=== PATIENT | female | born 1935 | race Caucasian/White ===

== ENCOUNTER 2022-10-11 11:35 | Observation (INO) ==
[2022-10-11 11:58] VITALS: BMI 26.5
--- NOTE | 2022-10-11 12:17 | ED.ABDFE ---
HPI Time Seen Time Seen by Provider: 10/11/22 12:16 PCP Primary Care Physician: Matthias Tucker [place] Complaint Chief Complaint:: Pt sleeping alot more than usual, weakness, diarrhea, stomach pain indicated by pt at lower abdomen bilaterally, fever at home, increasing agitation at home, hallucinations on and Tuesday but have now resolved Self Treatment fo Chief Complaint: tylenol, immodium, advil PRN at home, none this morning did take other prescribed meds this morning COVID-19 Coronavirus risk:travel/contact w/high risk person: No Has patient experienced Coronavirus symptoms: No Reviewed Nurses Notes Review: Yes Source History Provided: Patient and Family Member Mode of arrival Mode of Arrival: Wheelchair Timing Onset of Chief Complaint: 10/07/22 PMH PMH Past Medical History: Yes Past Medical History: Dementia, GERD and Hypertension Past Medical History Comment: RLS Past Surgical History: Yes Surgical History: and Hysterectomy Family History History of Family Medical Conditions: Yes Family Medical History: Hypertension Social History Does patient currently use any type of tobacco product: No Have you used tobacco products in the last 12 months: No Type of Tobacco Use: None Does any household member use tobacco: No Alcohol Use: None Do you use any recreational Drugs:: No Lives With: Family Lives Where: Home Travel Risk Coronavirus risk:travel/contact w/high risk person: No Has patient experienced Coronavirus symptoms: No Infectious screening In the last 2 months have you had wt loss of >10#?: NO Have you had fever, night sweats or hemotysis?: No Have you traveled outside the country in the last 6 months?: No Isolation: Standard PE Vital Signs Vitals: Vital Signs Temperature 98.2 F Pulse Rate 90 Pulse Rate 90 Pulse Rate 91 Pulse Rate 91 Pulse Rate 87 Pulse Rate 85 Pulse Rate 84 Pulse Rate 83 Pulse Rate 82 Pulse Rate 82 Pulse Rate 81 Pulse Rate 79 Pulse Rate 77 Pulse Rate 83 Respiratory Rate 16 Blood Pressure 111/51 Blood Pressure 117/51 Blood Pressure 149/62 Blood Pressure 119/58 Blood Pressure 110/57 O2 Sat by Pulse Oximetry 91 O2 Sat by Pulse Oximetry 93 O2 Sat by Pulse Oximetry 93 O2 Sat by Pulse Oximetry 93 O2 Sat by Pulse Oximetry 97 O2 Sat by Pulse Oximetry 96 O2 Sat by Pulse Oximetry 96 O2 Sat by Pulse Oximetry 96 O2 Sat by Pulse Oximetry 95 O2 Sat by Pulse Oximetry 96 O2 Sat by Pulse Oximetry 96 O2 Sat by Pulse Oximetry 94 O2 Sat by Pulse Oximetry 94 O2 Sat by Pulse Oximetry 95 ROR Labs Reviewed 10/11/22 13:31 10/11/22 13:31 Laboratory: 10/11/22 15:02 Stool - Final WBC 8.4 X10^3/uL (3.6-10.0) 10/11/22 13:31 RBC 4.33 X10^6/uL (3.5-5.4) 10/11/22 13:31 Hgb 14.0 g/dL (12.0-16.0) 10/11/22 13:31 Hct 40.7 % (36.0-47.0) 10/11/22 13:31 MCV 93.9 fL (80.0-100.0) 10/11/22 13:31 MCH 32.4 pg (27.0-34.0) 10/11/22 13:31 MCHC 34.5 g/dL (33.0-35.0) 10/11/22 13:31 RDW 13.7 % (11.6-16.5) 10/11/22 13:31 Plt Count 161 X10^3/uL (150.0-450.0) 10/11/22 13:31 MPV 8.3 fL (7.4-11.0) 10/11/22 13:31 Neut % (Auto) 65.5 % (42.0-75.0) 10/11/22 13:31 Lymph % (Auto) 18.9 % (21.0-51.0) L 10/11/22 13:31 [place] % (Auto) 11.7 % (0.0-13.0) 10/11/22 13:31 Eos % (Auto) 3.6 % (0.9-2.9) H 10/11/22 13:31 Baso % (Auto) 0.3 % (0.2-1.0) 10/11/22 13:31 Neut # (Auto) 5.5 x10^3/uL (2.2-4.8) H 10/11/22 13:31 Lymph # (Auto) 1.6 X10^3/uL (1.3-2.9) 10/11/22 13:31 [place] # (Auto) 1.0 x10^3/uL (0.3-0.8) H 10/11/22 13:31 Eos # (Auto) 0.3 x10^3/uL (0.0-0.2) H 10/11/22 13:31 Baso # (Auto) 0.0 X10^3/uL (0.0-0.1) 10/11/22 13:31 Absolute Nucleated RBC 0.0 /100WBC 10/11/22 13:31 Sodium 139 mmol/L (136-145) 10/11/22 13:31 Corrected Sodium 139 mmol/L (136-145) 10/11/22 13:31 Potassium 3.3 mmol/L (3.5-5.1) L 10/11/22 13:31 Chloride 100 mmol/L (98-107) 10/11/22 13:31 Carbon Dioxide 33.1 mmol/L (21-32) H 10/11/22 13:31 BUN 17 mg/dL (7-18) 10/11/22 13:31 Creatinine 1.62 mg/dL (0.55-1.02) H 10/11/22 13:31 Est GFR (MDRD) Af Amer 39 (>60) L 10/11/22 13:31 Est GFR (MDRD) Non-Af 32 (>60) L 10/11/22 13:31 Glucose 114 mg/dL (65-99) H 10/11/22 13:31 Calcium 8.2 mg/dL (8.5-10.1) L 10/11/22 13:31 Corrected Calcium 9.0 mg/dL (8.5-10.1) 10/11/22 13:31 Total Bilirubin 0.70 mg/dL (0.2-1.0) 10/11/22 13:31 AST 20 Units/L (15-37) 10/11/22 13:31 ALT 20 Units/L (12-78) 10/11/22 13:31 Alkaline Phosphatase 55 Units/L (46-116) 10/11/22 13:31 Creatine Kinase 39 Units/L (26-192) 10/11/22 13:31 Troponin I High Sens 6.0 ng/L (4.0-60.0) 10/11/22 13:31 Total Protein 6.4 g/dL (6.4-8.2) 10/11/22 13:31 Albumin 3.0 g/dL (3.4-5.0) L 10/11/22 13:31 Globulin 3.4 g/dL (2.5-4.5) 10/11/22 13:31 Albumin/Globulin Ratio 0.9 Ratio (1.1-2.1) L 10/11/22 13:31 Amylase 16 Units/L (25-115) L 10/11/22 13:31 Lipase 38 Units/L (73-393) L 10/11/22 13:31 Specimen Type Clean catch urine 10/11/22 14:50 Urine Color Dark yellow (YELLOW) 10/11/22 14:50 Urine Appearance Hazy (CLEAR) 10/11/22 14:50 Urine pH 6.0 (5.0 - 8.0) 10/11/22 14:50 Ur Specific [place] 1.025 (1.000-1.030) 10/11/22 14:50 Urine Protein 1+ (NEGATIVE) 10/11/22 14:50 Urine Glucose (UA) Negative (NEGATIVE) 10/11/22 14:50 Urine Ketones Negative (NEGATIVE) 10/11/22 14:50 Urine Blood 1+ (NEGATIVE) 10/11/22 14:50 Urine Nitrite Negative (NEGATIVE) 10/11/22 14:50 Urine Bilirubin Negative (NEGATIVE) 10/11/22 14:50 Urine Urobilinogen Normal (NORMAL) 10/11/22 14:50 Ur Leukocyte Esterase Negative (NEGATIVE) 10/11/22 14:50 Urine RBC 0-2 /HPF (0-3) 10/11/22 14:50 Urine WBC 3-5 /HPF (0-5) 10/11/22 14:50 Ur Squamous Epith Cells Moderate /HPF (NEGATIVE) 10/11/22 14:50 Urine Bacteria Trace /HPF (NEGATIVE) 10/11/22 14:50 Urine Mucus Few /HPF (NEGATIVE) 10/11/22 14:50 Ur Culture Indicated? No/not indicated 10/11/22 14:50 Stl C. diff Tox B Gene Positive (NEGATIVE) A 10/11/22 15:02 Stl C. diff [id number] Presumptive positive (NEGATIVE) 10/11/22 15:02 C. difficile Toxin A&B Positive (NEGATIVE) A 10/11/22 15:02 Cryptosporid parvum Ag Negative (NEGATIVE) 10/11/22 15:02 Giardia lamblia Ag Negative (NEGATIVE) 10/11/22 15:02 Opioid Opioid Risk Tool Age (Andrew box if 16-45): No History of Preadolescent Sexual Abuse: No Total: 0 Total Score Risk Category: Low Risk Copyright: Singer predicting aberrant behaviors Discharge Plan Discharge Plan Patient Disposition: HOME, SELF-CARE Condition: Stable Prescriptions: No Action clonidine HCl 0.1 mg tablet 0.1 mg PO donepezil 5 mg tablet 5 mg PO QPM diltiazem HCl 240 mg capsule,extended release 24hr 240 mg PO QAM citalopram 20 mg tablet 20 mg PO QPM pantoprazole 40 mg tablet,delayed release (DR/EC) 40 mg PO QAM ferrous sulfate [FeroSul] 325 mg (65 mg iron) tablet 325 mg PO QAM hydrochlorothiazide 12.5 mg capsule 12.5 mg PO QAM gabapentin 100 mg capsule 100 mg PO QPM estradiol 0.5 mg tablet 0.5 mg PO QAM rosuvastatin 10 mg tablet 10 mg PO QPM memantine 10 mg tablet 10 mg PO aripiprazole 2 mg tablet 6 mg PO QPM Health Concerns: Post Hospitalization: new medications and changes needed to prevent readmission or further decline. Pt educated and given instructions on all concerns. Plan of Treatment: Continue with present treatment and follow up plan. Pt is to keep follow up appointment as instructed and take medications as ordered. Orders to Discharge Patient Discharge Orders: Transfer (Routine); Ordered 10/11/22 Ordered By: TARUN RAMOS Follow ups/Referrals Follow ups/Referrals: Pierre Brice [Primary Care Provider] - 3 days Instructions Stand Alone Forms: Post Hospital Follow Up Care
[2022-10-11 14:17] LABS: BASOPHILS % (AUTO) 0.3 % (0.2-1.0); EOSINOPHILS # (AUTO) 0.3 x10^3/uL (0.0-0.2); EOSINOPHILS % (AUTO) 3.6 % (0.9-2.9); HEMATOCRIT 40.7 % (36.0-47.0); LYMPHOCYTES # (AUTO) 1.6 X10^3/uL (1.3-2.9); LYMPHOCYTES % (AUTO) 18.9 % (21.0-51.0); MEAN CORPUSCULAR HEMOGLOBIN 32.4 pg (27.0-34.0); MEAN CORPUSCULAR HGB CONC 34.5 g/dL (33.0-35.0); MEAN CORPUSCULAR VOLUME 93.9 fL (80.0-100.0); MEAN PLATELET VOLUME 8.3 fL (7.4-11.0); MONOCYTES % (AUTO) 11.7 % (0.0-13.0); NEUTROPHILS # (AUTO) 5.5 x10^3/uL (2.2-4.8); NEUTROPHILS % (AUTO) 65.5 % (42.0-75.0); PLATELET COUNT 161 X10^3/uL (150.0-450.0); RED BLOOD COUNT 4.33 X10^6/uL (3.5-5.4); RED CELL DISTRIBUTION WIDTH 13.7 % (11.6-16.5); WHITE BLOOD COUNT 8.4 X10^3/uL (3.6-10.0)
[2022-10-11 14:34] LABS: CALCIUM 8.2 mg/dL (8.5-10.1); CARBON DIOXIDE 33.1 mmol/L (21-32); CREATININE 1.62 mg/dL (0.55-1.02); POTASSIUM 3.3 mmol/L (3.5-5.1); TOTAL PROTEIN 6.4 g/dL (6.4-8.2)
--- NOTE | 2022-10-11 14:42 | EKG ---
Test Reason : HYPERTENSION Blood Pressure : */* mmHG Vent. Rate : 84 BPM Atrial Rate : 84 BPM P-R Int : 150 ms QRS Dur : 76 ms QT Int : 342 ms P-R-T Axes : 66 31 -1 degrees QTc Int : 404 ms Normal sinus rhythm Nonspecific T wave abnormality Abnormal ECG No previous ECGs available Confirmed by Henrik Lawrence ([id number]) on 10/12/2022 8:04:33 AM Referred By: Confirmed By: Henrik Lawrence
[2022-10-11 15:18] LABS: BILIRUBIN,URINE NEGATIVE (NEGATIVE); BLOOD/HEMOGLOBIN,URINE 1+ (NEGATIVE); GLUCOSE, URINE NEGATIVE (NEGATIVE); KETONES,URINE NEGATIVE (NEGATIVE); LEUKOCYTE ESTERASE ,URINE NEGATIVE (NEGATIVE); NITRITES,URINE NEGATIVE (NEGATIVE); PROTEIN,URINE 1+ (NEGATIVE); UROBILINOGEN,URINE NORMAL (NORMAL)
[2022-10-11 15:30] LABS: APPEARANCE,URINE HAZY (CLEAR); BACTERIA,URINE TRACE /HPF (NEGATIVE); COLOR,URINE DARK YELLOW (YELLOW); RBC,URINE 0-2 /HPF (0-3); SQUAMOUS EPITHELIAL CELL,UR MODERATE /HPF (NEGATIVE)
[2022-10-11 16:12] LABS: CRYPTOSPORIDIUM PARVUM ANTIGEN NEGATIVE (NEGATIVE); GIARDIA LAMBLIA ANTIGEN NEGATIVE (NEGATIVE)
[2022-10-11] MEDS ORDERED: NS 1,000 ML IV 1,000 ML ONE (18:19)
[2022-10-11] MEDS: NS 1,000 ML IV 1,000 ML IV SCH ×2 (18:21→18:23)
--- NOTE | 2022-10-11 18:38 | RAD ---
EXAM: ABDOMEN X-RAY SERIES WITH CXRHISTORY: Abdominal pain.TECHNIQUE: Supine and erect views of the abdomen; frontal single view CXRCOMPARISON: None.FINDINGS:ABDOMEN: The bowel gas pattern is nonspecific and nonobstructive. There is no gross organomegaly, free intraperitoneal air, or suspicious calcifications seen. Multilevel DDD is seen in the middle and distal thoracic spine. The visualized bony structures are otherwise within normal limits.CHEST: The heart size and mediastinum are within normal limits. The lung calvo and costophrenic angles are clear. There is no acute parenchymal infiltrate, pleural effusion, or pneumothorax seen. Multilevel DDD is seen throughout the lumbar spine, marked by disc space narrowings and prominent lateral marginal osteophytosis, with mild lumbar levoscoliosis; rule out muscle spasm.. The visualized bony structures are otherwise within normal limits.IMPRESSION:1. Nonspecific, nonobstructive bowel gas pattern.2. No gross organomegaly, free intraperitoneal air, or suspicious calcifications seen.3. No evidence for acute cardiopulmonary disease seen.4. Severe multilevel DDD is seen throughout the middle and distal thoracic spine and lumbar spine.5. Mild lumbar levoscoliosis; rule out muscle spasm.Electronically signed by: Felicia Manriquez (Oct 11, 2022 18:36:49)
[2022-10-11] MEDS ORDERED: ROCEPHIN VIAL 1 GRAM ONE (20:43)
[2022-10-11] MEDS ORDERED: NS 100 ML IV 100 ML ONE (20:43)
[2022-10-11] MEDS ORDERED: ZITHROMAX INJ 500 MG VIAL 500 MG in NS 250 ML IV 250 ML IV SCH (21:00)
[2022-10-11] MEDS ORDERED: ZITHROMAX INJ 500 MG VIAL IV ONE (22:08)
[2022-10-11] MEDS ORDERED: NS 250 ML IV 250 ML IV ONE (22:08)
[2022-10-11] MEDS ORDERED: TYLENOL 325 MG TAB PO ONE (22:45)
[2022-10-11] MEDS: TYLENOL 325 MG TAB PO PRN ×2 (22:50→22:51)
[2022-10-11] MEDS ORDERED: NS 1,000 ML IV 1,000 ML IV SCH (23:32)
[2022-10-12 05:33] LABS: BASOPHILS % (AUTO) 0.3 % (0.2-1.0); EOSINOPHILS # (AUTO) 0.2 x10^3/uL (0.0-0.2); EOSINOPHILS % (AUTO) 2.4 % (0.9-2.9); HEMATOCRIT 39.1 % (36.0-47.0); HEMOGLOBIN 13.5 g/dL (12.0-16.0); LYMPHOCYTES # (AUTO) 1.5 X10^3/uL (1.3-2.9); LYMPHOCYTES % (AUTO) 15.8 % (21.0-51.0); MEAN CORPUSCULAR HEMOGLOBIN 32.3 pg (27.0-34.0); MEAN CORPUSCULAR HGB CONC 34.7 g/dL (33.0-35.0); MEAN CORPUSCULAR VOLUME 93.3 fL (80.0-100.0); MEAN PLATELET VOLUME 8.4 fL (7.4-11.0); MONOCYTES # (AUTO) 1.1 x10^3/uL (0.3-0.8); MONOCYTES % (AUTO) 12.3 % (0.0-13.0); NEUTROPHILS # (AUTO) 6.5 x10^3/uL (2.2-4.8); NEUTROPHILS % (AUTO) 69.2 % (42.0-75.0); PLATELET COUNT 167 X10^3/uL (150.0-450.0); RED BLOOD COUNT 4.19 X10^6/uL (3.5-5.4); RED CELL DISTRIBUTION WIDTH 13.5 % (11.6-16.5); WHITE BLOOD COUNT 9.4 X10^3/uL (3.6-10.0)
[2022-10-12 05:48] LABS: ALANINE AMINOTRANSFERASE 18 Units/L (12-78); ALBUMIN 2.8 g/dL (3.4-5.0); ALKALINE PHOSPHATASE 58 Units/L (46-116); ASPARTATE AMINO TRANSFERASE 24 Units/L (15-37); BLOOD UREA NITROGEN 14 mg/dL (7-18); CALCIUM 8.1 mg/dL (8.5-10.1); CARBON DIOXIDE 27.7 mmol/L (21-32); CHLORIDE 100 mmol/L (98-107); COR CA(FOR HYPOALB) 9.1 mg/dL (8.5-10.1); CREATININE 1.07 mg/dL (0.55-1.02); GLUCOSE 105 mg/dL (65-99); MAGNESIUM 1.8 mg/dL (2.0-2.9); POTASSIUM 3.1 mmol/L (3.5-5.1); SODIUM 138 mmol/L (136-145); TOTAL PROTEIN 6.2 g/dL (6.4-8.2); eGFR NON BLACK RACES 52 (>60)
[2022-10-12] MEDS ORDERED: CONSULT PHARMACY - POTASSIUM & MAGNESIUM XX SCH (07:00)
[2022-10-12] MEDS ORDERED: FERROUS GLUCONATE PO SCH (10:25)
[2022-10-12] MEDS: NS 1,000 ML IV 1,000 ML IV SCH (10:58)
[2022-10-12] MEDS: K-DUR TAB 20 MEQ PO SCH ×2 (10:59→11:26)
[2022-10-12] MEDS: CIPRO IV 400 MG PREMIX* 400 MG/200 ML IV.SOLN. IV SCH ×2 (10:59→22:20)
[2022-10-12] MEDS: MAG-OX TAB PO SCH ×2 (10:59→11:25)
[2022-10-12] MEDS: FLAGYL IV PREMIX 500 MG BAG 500 MG/100 ML BAG IV SCH ×3 (10:59→21:12)
[2022-10-12] MEDS: LOVENOX INJ 40 MG SYR SC SCH (10:59)
[2022-10-12] MEDS: CARDIZEM CD 240 MG 24-HR PO SCH (11:17)
[2022-10-12] MEDS: NAMENDA TAB 10 MG PO SCH ×2 (11:18→21:12)
[2022-10-12] MEDS: PROTONIX TAB 40 MG PO SCH (11:18)
[2022-10-12] MEDS: CATAPRES TAB 0.1 MG PO SCH ×2 (11:18→21:11)
[2022-10-12] MEDS: ESTRACE PO SCH (11:19)
--- NOTE | 2022-10-12 11:34 | DR.H&P ---
H&P - History & Physical for Day of: H&P Date: 10/11/22 - Chief Complaint Chief Complaint: AMS, WEAKNESS, DIARRHEA, FEVER, ABDOMINAL PAIN - History of Present Illness History of Present Illness: IS A 87 YEAR OLD PATIENT OF [place] IN [place], [place]. SHE HAS A PMH OF HTN, HYPERLIPIDEMIA, DEMENTIA, GERD, RLS, C- SECTION, AND HYSTERECTOMY. SHE PRESENTED TO THE ER WITH COMPLAINTS OF INCREASING WEAKNESS, DIARRHEA, LOWER ABDOMINAL PAIN, FEVER, AND ALTERED MENTAL STATUS. HER DAUGHTER REPORTS THAT SHE HAD BEEN AGITATED AND HALLUCINATING AT HOME. HER SYMPTOMS STARTED 4-5 DAYS AGO. PATIENT HAS TAKNE TYLENOL, ADVIL, AND IMMODIUM AT HOME WITHOUT IMPROVEMENT IN SYMPTOMS. ON ARRIVAL TO THE ER, HER VITALS WERE: 98.2-83-16-95%-110/57. LABS WERE OBTAINED. WBC 8.4, RBC 4.33, HGB 14.0, HCT 40.7, PLT COUNT 161, SODIUM 139, POTASSIUM 3.3, CHLORIDE 100, CARBON DIOXIDE 33.1, BUN 17, CREATININE 1.62, GLUCOSE 114, CALCIUM 8.2, TOTAL BILI 0.70, AST 20, ALT 20, ALK PHOS 55, CREATINE KINASE 39, TROPONIN 6.0, TOTAL PROTEIN 6.4, ALBUMIN 3.0, AMYLASE 16, LIPASE 38. A URINALYSIS WAS OBTAINED AND REVEALED: WBC 3-5, RBC 0-2, BACTERIA TRACE, LEUKOCYTES NEGATIVE, BLOOD 1+. STOOLS WERE POSITIVE FOR C.DIFF AND CAMPYLOBACTER. STOOL CULTURES WERE SET UP. AN ABDOMEN XRAY WAS OBTAINED AND REVEALED: 1. Nonspecific, nonobstructive bowel gas pattern. 2. No gross organomegaly, free intraperitoneal air, or suspicious calcifications. seen. 3. No evidence for acute cardiopulmonary disease seen. 4. Severe multilevel DDD is seen throughout the middle and distal thoracic spine and lumbar spine. 5. Mild lumbar levoscoliosis; rule out muscle spasm. EKG REVEALED NORMAL SINUS RHYTHM WITH HR 84 BPM. IN THE ER, SHE WAS GIVEN ZITHROMAX 500MG IV X 1 AND ROCEPHIN 1G IV X 1 DOSE. SHE WAS ADMITTED TO THE HOSPITAL FOR FURTHER EVALUATION AND TREATMENT OF DEHYDRATION, BACTERIURIA, C- DIFF COLITIS, CAMPYLOBACTER COLITIS, GENERALIZED WEAKNESS. SHE WAS STARTED ON NORMAL SALINE AT 80 ML/HR, FLAGYL 500MG IV Q6H, CIPRO 400MG IV Q12H, VSL 2 CAPS DAILY, PEPCID 20MG BID, LOVENOX 40MG SC DAILY, TYLENOL 650MG PO Q4H PRN. HER HOME MEDICATIONS OF ABILIFY, CELEXA, CATAPRES, CARDIZEM, ESTRACE, FERROUS GLUCONATE, NEURONTIN, NAMENDA, PROTONIX, AND CRESTOR WERE RESUMED. OTHERWISE, WE PLAN TO FOLLOW UP WITH AM LABS AND CONTINUE TO MONITOR. TIME SPENT ON CLINICAL ASSESSMENT, REVIEWING LABS AND IMAGING, DECISION MAKING, AND DOCUMENTATION GREATER THAN 75 MINUTES. - Past Medical History Past Medical History: Dementia, Dyslipidemia, GERD, Hypertension Additional Medical History: RLS - Past Surgical History Surgical History: , Hysterectomy - Family History Family Medical History: Cancer, [place] - Social History Does patient currently use any type of tobacco product: No Have you used tobacco products in the last 12 months: No Type of Tobacco Use: None Does any household member use tobacco: No Alcohol Use: None Drug Use: None - Review of Systems Constitutional: Fever, Weakness Eyes: No Symptoms Reported ENT: No Symptoms Reported Respiratory: No Symptoms Reported Cardiovascular: No Symptoms Reported Gastrointestinal: See HPI, Nausea, Abdominal Pain, Diarrhea. denies: Vomiting Genitourinary: No Symptoms Reported Musculoskeletal: No Symptoms Reported Skin: No Symptoms Reported Neurological: Weakness - Physical Exam Vital Signs: Vital Signs Temperature 97.2 F Temperature 98.5 F Pulse Rate [Left Brachial] 89 Pulse Rate 89 Respiratory Rate 17 Respiratory Rate 19 Blood Pressure [Left Arm] 167/73 Blood Pressure 178/78 O2 Sat by Pulse Oximetry 96 O2 Sat by Pulse Oximetry 94 Oriented: Normal Eyes: Normal Ear: Normal Nose: Normal Throat: Normal Respiratory: Diminished Throughout Cardiovascular: Normal : Normal Auscultation: Bowel Sounds: Normal Palpation: Normal Tenderness: Diffuse, Mild Skin: Decreased Turgur Musculoskeletal: Normal Psychiatric: Normal Mood Description: Calm Affect: Normal Speech Pattern: Clear - Assessment/Plan (1) Dehydration Status: Acute Plan: ADMIT, NORMAL SALINE AT 80 ML/HR, FLAGYL 500MG IV Q6H, CIPRO 400MG IV Q12H, VSL 2 CAPS DAILY, PEPCID 20MG BID, LOVENOX 40MG SC DAILY, TYLENOL 650MG PO Q4H PRN. (2) Acute hypokalemia Status: Acute Plan: POTASSIUM PROTOCOL (3) C. difficile colitis Status: Acute (4) Colitis due to Campylobacter species Status: Acute (5) Bacteriuria Status: Acute (6) Generalized weakness Status: Acute (7) HTN (hypertension) Qualifiers: Hypertension type: primary hypertension Qualified Code(s): I10 - Essential (primary) hypertension Status: Chronic Plan: RESUME CARDIZEM AND CATAPRES (8) Major depressive disorder Qualifiers: Major depression recurrence: recurrent Active/Remission status: remission status unspecified Qualified Code(s): F33.9 - Major depressive disorder, recurrent, unspecified Status: Chronic Plan: RESUME ABILIFY AND CELEXA (9) GERD (gastroesophageal reflux disease) Qualifiers: Esophagitis presence: esophagitis presence not specified Qualified Code(s): K21.9 - Gastro-esophageal reflux disease without esophagitis Status: Chronic Plan: PEPCID, RESUME PROTONIX (10) Dementia Qualifiers: Dementia type: unspecified type Dementia severity: unspecified severity Dementia behavioral or psychological symptom: with anxiety Qualified Code(s): F03.94 - Unspecified dementia, unspecified severity, with anxiety Status: Chronic Plan: CONTINUE NAMENDA (11) Hyperlipidemia Qualifiers: Hyperlipidemia type: mixed hyperlipidemia Qualified Code(s): E78.2 - Mixed hyperlipidemia Status: Chronic Plan: CONTINUE CRESTOR - Allergies Allergies/Adverse Reactions: Allergies Allergy/AdvReac Type Severity Reaction Status Date / Time codeine Allergy Verified 09/15/22 14:04 - Medications Home Medications: Home Medications Medication Instructions Recorded Confirmed aripiprazole 2 mg tablet 6 mg PO QPM 09/15/22 10/11/22 citalopram 20 mg tablet 20 mg PO QPM 09/15/22 10/11/22 clonidine HCl 0.1 mg tablet 0.1 mg PO BID 09/15/22 10/11/22 diltiazem HCl 240 mg 240 mg PO QAM 09/15/22 10/11/22 capsule,extended release 24 hr estradiol 0.5 mg tablet 0.5 mg PO QAM 09/15/22 10/11/22 ferrous sulfate 325 mg (65 mg 325 mg PO QAM 09/15/22 10/11/22 iron) tablet (FeroSul) gabapentin 100 mg capsule 100 mg PO QPM restless legs 09/15/22 10/11/22 hydrochlorothiazide 12.5 mg capsule 12.5 mg PO QAM 09/15/22 10/11/22 memantine 10 mg tablet 10 mg PO BID 09/15/22 10/11/22 pantoprazole 40 mg tablet,delayed 40 mg PO QAM 09/15/22 10/11/22 release rosuvastatin 10 mg tablet 10 mg PO QPM 09/15/22 10/11/22
[2022-10-12] MEDS: VSL#3 PO SCH (12:46)
[2022-10-12] MEDS: PEPCID TAB 20 MG PO SCH ×2 (12:46→21:13)
[2022-10-12] MEDS ORDERED: BUTT CREAM (COMPOUND) ONE (13:57)
[2022-10-12] MEDS ORDERED: ROCEPHIN VIAL 1 GRAM 1 G in NS 100 ML IV 100 ML IV SCH (20:00)
[2022-10-12] MEDS: ABILIFY PO SCH (21:11)
[2022-10-12] MEDS: CELEXA PO SCH (21:11)
[2022-10-12] MEDS: CRESTOR TAB 10 MG PO SCH (21:12)
[2022-10-12] MEDS: NEURONTIN CAP 100 MG PO SCH (21:13)
[2022-10-12] MEDS: BUTT CREAM (COMPOUND) TOP PRN (21:15)
[2022-10-13] MEDS: BUTT CREAM (COMPOUND) TOP PRN (01:00)
[2022-10-13] MEDS: FLAGYL IV PREMIX 500 MG BAG 500 MG/100 ML BAG IV SCH (02:30)
[2022-10-13] MEDS: NS 1,000 ML IV 1,000 ML IV SCH (03:52)
[2022-10-13 05:11] LABS: BASOPHILS % (AUTO) 0.6 % (0.2-1.0); EOSINOPHILS # (AUTO) 0.4 x10^3/uL (0.0-0.2); EOSINOPHILS % (AUTO) 4.7 % (0.9-2.9); HEMATOCRIT 35.9 % (36.0-47.0); HEMOGLOBIN 12.6 g/dL (12.0-16.0); LYMPHOCYTES # (AUTO) 1.9 X10^3/uL (1.3-2.9); LYMPHOCYTES % (AUTO) 24.3 % (21.0-51.0); MEAN CORPUSCULAR HEMOGLOBIN 32.4 pg (27.0-34.0); MEAN CORPUSCULAR HGB CONC 35.1 g/dL (33.0-35.0); MEAN CORPUSCULAR VOLUME 92.4 fL (80.0-100.0); MEAN PLATELET VOLUME 7.4 fL (7.4-11.0); MONOCYTES # (AUTO) 0.8 x10^3/uL (0.3-0.8); MONOCYTES % (AUTO) 10.6 % (0.0-13.0); NEUTROPHILS # (AUTO) 4.6 x10^3/uL (2.2-4.8); NEUTROPHILS % (AUTO) 59.8 % (42.0-75.0); PLATELET COUNT 189 X10^3/uL (150.0-450.0); RED BLOOD COUNT 3.88 X10^6/uL (3.5-5.4); RED CELL DISTRIBUTION WIDTH 13.7 % (11.6-16.5); WHITE BLOOD COUNT 7.6 X10^3/uL (3.6-10.0)
[2022-10-13 05:32] LABS: ALANINE AMINOTRANSFERASE 16 Units/L (12-78); ALBUMIN 2.7 g/dL (3.4-5.0); ALKALINE PHOSPHATASE 49 Units/L (46-116); ASPARTATE AMINO TRANSFERASE 22 Units/L (15-37); BLOOD UREA NITROGEN 7 mg/dL (7-18); CALCIUM 7.8 mg/dL (8.5-10.1); CARBON DIOXIDE 30.8 mmol/L (21-32); CHLORIDE 104 mmol/L (98-107); COR CA(FOR HYPOALB) 8.8 mg/dL (8.5-10.1); COR NA(FOR HYPERGLY) 142 mmol/L (136-145); CREATININE 0.96 mg/dL (0.55-1.02); GLUCOSE 129 mg/dL (65-99); SODIUM 141 mmol/L (136-145); TOTAL PROTEIN 5.8 g/dL (6.4-8.2); eGFR NON BLACK RACES 58 (>60)
[2022-10-13 05:36] LABS: POTASSIUM 2.9 mmol/L (3.5-5.1)
[2022-10-13] MEDS ORDERED: CONSULT PHARMACY - POTASSIUM & MAGNESIUM XX SCH (06:00)
[2022-10-13] MEDS: NAMENDA TAB 10 MG PO SCH ×2 (08:44→21:21)
[2022-10-13] MEDS: CATAPRES TAB 0.1 MG PO SCH ×2 (08:44→21:22)
[2022-10-13] MEDS: PROTONIX TAB 40 MG PO SCH (08:44)
[2022-10-13] MEDS: LOVENOX INJ 40 MG SYR SC SCH (08:44)
[2022-10-13] MEDS: PEPCID TAB 20 MG PO SCH ×2 (08:45→21:21)
[2022-10-13] MEDS: FERROUS GLUCONATE PO SCH (08:45)
[2022-10-13] MEDS: CARDIZEM CD 240 MG 24-HR PO SCH (08:45)
[2022-10-13] MEDS: K-DUR TAB 20 MEQ PO SCH ×3 (08:45→13:10)
[2022-10-13] MEDS: ESTRACE PO SCH (08:45)
[2022-10-13] MEDS: FLAGYL TAB 500 MG PO SCH ×3 (08:45→21:25)
[2022-10-13] MEDS: CIPRO IV 400 MG PREMIX* 400 MG/200 ML IV.SOLN. IV SCH ×2 (08:46→21:22)
[2022-10-13] MEDS: VSL#3 PO SCH (08:46)
[2022-10-13] MEDS ORDERED: HYDROCHLOROTHIAZIDE 12.5 MG CAP PO SCH (09:00)
[2022-10-13] MEDS: NS + KCL 20 MEQ/L 1,000 ML IV SCH (10:25)
[2022-10-13] MEDS: MAG-OX TAB PO SCH ×2 (10:25→21:21)
--- NOTE | 2022-10-13 12:23 | PCM.PROG ---
Progress Note - Progress Note for Day of Date of Exam: 10/13/22 - Subjective Subjective: IS CURRENTLY OBSERVATION STATUS FOR TREATMENT OF DEHYDRATION, ACUTE HYPOKALEMIA, C.DIFF COLITIS, COLITIS DUE TO CAMPYLOBACTER, BACTERIURIA, AND GENERALIZED WEAKNESS. SHE HAS A PMH OF HTN, HYPERLIPIDEMIA, DEMENTIA, GERD, RLS, , AND HYSTERECTOMY. TODAY, SHE IS ALERT AND ORIENTED, LYING IN BED ON MORNING ROUNDS. SHE CONTINUES TO COMPLAIN OF WEAKNESS, BUT DOES REPORT SLIGHT IMPROVEMENT IN SYMPTOMS SINCE ADMISSION. HER DAUGHTER IS AT BEDSIDE AND REPORTS THAT SHE WAS CONFUSED THROUGHOUT THE NIGHT. SHE IS ABLE TO ANSWER QUESTIONS AND FOLLOW COMMANDS APPROPRIATELY THIS MORNING. ON EXAMINATION, HEART IS REGULAR IN RATE AND RHYTHM. BILATERAL LUNG ARE NOTED WITH DIMINISHED LUNG SOUNDS THROUGHOUT. ABDOMEN IS ROUND, SOFT, AND NON-TENDER WITH NORMAL BOWEL SOUNDS NOTED IN ALL QUADRANTS. GOOD RANGE OF MOTION NOTED TO UPPER AND LOWER EXTREMITIES WITH NO EDEMA NOTED. HER VITALS THIS MORNING ARE: 97.7-73-20-100%-171/74. LABS WERE OBTAINED. SODIUM 141, POTASSIUM 2.9, BUN 7, CREATININE 0.96, GLUCOSE 129, CALCIUM 7.8, TOTAL BILI 0.40, AST 22, ALT 16, ALK PHOS 49, TOTAL PROTEIN 5.8, ALBUMIN 2.7. STOOL CULTURES ARE PENDING. SHE IS CURRENTLY RECEIVING NORMAL SALINE AT 80 ML/HR, FLAGYL 500MG PO Q6H, CIPRO 400MG IV Q12H, VSL 2 CAPS DAILY, PEPCID 20MG BID, LOVENOX 40MG SC DAILY, TYLENOL 650MG PO Q4H PRN. HER HOME MEDICATIONS OF ABILIFY, CELEXA, CATAPRES, CARDIZEM, ESTRACE, FERROUS GLUCONATE, NEURONTIN, NAMENDA, PROTONIX, AND CRESTOR WERE RESUMED. WE WILL CONTINUE WITH CURRENT PLAN OF CARE TODAY. WE WILL HAVE PHYSICAL THERAPY WORK WITH HER TODAY. OTHERWISE, WE WILL FOLLOW UP WITH AM LABS AND CONTINUE TO MONITOR. TIME SPENT ON CLINICAL ASSESSMENT, REVIEWING LABS AND IMAGING, DECISION MAKING, AND DOCUMENTATION GREATER THAN 45 MINUTES. - Past Medical Family Social History Past Med/Fam/Surg Hx: No changes since H&P Allergies: Allergies codeine Allergy (Verified 09/15/22 14:04) - Review of Systems ROS: No change since H&P - Vital Signs and I&O's Vital Signs: Vital Signs Temperature 97.7 F Pulse Rate 79 Pulse Rate 78 Pulse Rate 84 Pulse Rate 74 Pulse Rate 73 Pulse Rate 74 Pulse Rate 69 Pulse Rate 65 Respiratory Rate 22 Respiratory Rate 18 Respiratory Rate 20 Respiratory Rate 23 Respiratory Rate 20 Respiratory Rate 13 Respiratory Rate 14 Respiratory Rate 14 Blood Pressure 183/77 Blood Pressure 193/82 Blood Pressure 171/74 Blood Pressure 163/72 Blood Pressure 152/67 Blood Pressure 140/63 O2 Sat by Pulse Oximetry 100 O2 Sat by Pulse Oximetry 100 O2 Sat by Pulse Oximetry 100 O2 Sat by Pulse Oximetry 100 O2 Sat by Pulse Oximetry 100 O2 Sat by Pulse Oximetry 98 O2 Sat by Pulse Oximetry 99 O2 Sat by Pulse Oximetry 100 Intake and Output: Intake & Output 10/11/22 10/12/22 10/13/22 10/14/22 11:59 11:59 11:59 11:59 Intake Total 1204 / 1204 2614 / 2614 Balance 1204 / 1204 2614 / 2614 - Physical Exam Oriented: Normal Eyes: Normal Ear: Normal Nose: Normal Throat: Normal Respiratory: Generalized, Diminished Cardiovascular: Normal : Normal Auscultation: Bowel Sounds: Normal Palpation: Normal Tenderness: Diffuse, Mild Skin: Decreased Turgur Musculoskeletal: Normal Psychiatric: Normal Mood Description: Calm Affect: Normal Speech Pattern: Clear, Appropriate - Laboratory and Diagnostics Result Diagrams: 10/13/22 04:55 10/13/22 04:55 Labs: 10/11/22 15:02 Stool Stool Culture - Final 10/11/22 15:02 Stool - Final Laboratory WBC 7.6 X10^3/uL (3.6-10.0) 10/13/22 04:55 RBC 3.88 X10^6/uL (3.5-5.4) 10/13/22 04:55 Hgb 12.6 g/dL (12.0-16.0) 10/13/22 04:55 Hct 35.9 % (36.0-47.0) L 10/13/22 04:55 MCV 92.4 fL (80.0-100.0) 10/13/22 04:55 MCH 32.4 pg (27.0-34.0) 10/13/22 04:55 MCHC 35.1 g/dL (33.0-35.0) H 10/13/22 04:55 RDW 13.7 % (11.6-16.5) 10/13/22 04:55 Plt Count 189 X10^3/uL (150.0-450.0) 10/13/22 04:55 MPV 7.4 fL (7.4-11.0) 10/13/22 04:55 Neut % (Auto) 59.8 % (42.0-75.0) 10/13/22 04:55 Lymph % (Auto) 24.3 % (21.0-51.0) 10/13/22 04:55 [place] % (Auto) 10.6 % (0.0-13.0) 10/13/22 04:55 Eos % (Auto) 4.7 % (0.9-2.9) H 10/13/22 04:55 Baso % (Auto) 0.6 % (0.2-1.0) 10/13/22 04:55 Neut # (Auto) 4.6 x10^3/uL (2.2-4.8) 10/13/22 04:55 Lymph # (Auto) 1.9 X10^3/uL (1.3-2.9) 10/13/22 04:55 [place] # (Auto) 0.8 x10^3/uL (0.3-0.8) 10/13/22 04:55 Eos # (Auto) 0.4 x10^3/uL (0.0-0.2) H 10/13/22 04:55 Baso # (Auto) 0.0 X10^3/uL (0.0-0.1) 10/13/22 04:55 Absolute Nucleated RBC 0.0 /100WBC 10/13/22 04:55 Sodium 141 mmol/L (136-145) 10/13/22 04:55 Corrected Sodium 142 mmol/L (136-145) 10/13/22 04:55 Potassium 2.9 mmol/L (3.5-5.1) L* 10/13/22 04:55 Chloride 104 mmol/L (98-107) 10/13/22 04:55 Carbon Dioxide 30.8 mmol/L (21-32) 10/13/22 04:55 BUN 7 mg/dL (7-18) 10/13/22 04:55 Creatinine 0.96 mg/dL (0.55-1.02) 10/13/22 04:55 Est GFR (MDRD) Af Amer > 60 (>60) 10/13/22 04:55 Est GFR (MDRD) Non-Af 58 (>60) L 10/13/22 04:55 Glucose 129 mg/dL (65-99) H 10/13/22 04:55 Calcium 7.8 mg/dL (8.5-10.1) L 10/13/22 04:55 Corrected Calcium 8.8 mg/dL (8.5-10.1) 10/13/22 04:55 Magnesium 1.8 mg/dL (2.0-2.9) L 10/12/22 04:40 Total Bilirubin 0.40 mg/dL (0.2-1.0) 10/13/22 04:55 AST 22 Units/L (15-37) 10/13/22 04:55 ALT 16 Units/L (12-78) 10/13/22 04:55 Alkaline Phosphatase 49 Units/L (46-116) 10/13/22 04:55 Creatine Kinase 39 Units/L (26-192) 10/11/22 13:31 Troponin I High Sens 6.0 ng/L (4.0-60.0) 10/11/22 13:31 Total Protein 5.8 g/dL (6.4-8.2) L 10/13/22 04:55 Albumin 2.7 g/dL (3.4-5.0) L 10/13/22 04:55 Globulin 3.1 g/dL (2.5-4.5) 10/13/22 04:55 Albumin/Globulin Ratio 0.9 Ratio (1.1-2.1) L 10/13/22 04:55 Amylase 16 Units/L (25-115) L 10/11/22 13:31 Lipase 38 Units/L (73-393) L 10/11/22 13:31 Specimen Type Clean catch urine 10/11/22 14:50 Urine Color Dark yellow (YELLOW) 10/11/22 14:50 Urine Appearance Hazy (CLEAR) 10/11/22 14:50 Urine pH 6.0 (5.0 - 8.0) 10/11/22 14:50 Ur Specific Lyle 1.025 (1.000-1.030) 10/11/22 14:50 Urine Protein 1+ (NEGATIVE) 10/11/22 14:50 Urine Glucose (UA) Negative (NEGATIVE) 10/11/22 14:50 Urine Ketones Negative (NEGATIVE) 10/11/22 14:50 Urine Blood 1+ (NEGATIVE) 10/11/22 14:50 Urine Nitrite Negative (NEGATIVE) 10/11/22 14:50 Urine Bilirubin Negative (NEGATIVE) 10/11/22 14:50 Urine Urobilinogen Normal (NORMAL) 10/11/22 14:50 Ur Leukocyte Esterase Negative (NEGATIVE) 10/11/22 14:50 Urine RBC 0-2 /HPF (0-3) 10/11/22 14:50 Urine WBC 3-5 /HPF (0-5) 10/11/22 14:50 Ur Squamous Epith Cells Moderate /HPF (NEGATIVE) 10/11/22 14:50 Urine Bacteria Trace /HPF (NEGATIVE) 10/11/22 14:50 Urine Mucus Few /HPF (NEGATIVE) 10/11/22 14:50 Ur Culture Indicated? No/not indicated 10/11/22 14:50 Stl C. diff Tox B Gene Positive (NEGATIVE) A 10/11/22 15:02 Stl C. diff [id number] Presumptive positive (NEGATIVE) 10/11/22 15:02 C. difficile Toxin A&B Positive (NEGATIVE) A 10/11/22 15:02 Cryptosporid parvum Ag Negative (NEGATIVE) 10/11/22 15:02 Giardia lamblia Ag Negative (NEGATIVE) 10/11/22 15:02 - Plan (1) Dehydration Status: Acute Plan: NORMAL SALINE AT 80 ML/HR, FLAGYL 500MG PO Q6H, CIPRO 400MG IV Q12H, VSL 2 CAPS DAILY, PEPCID 20MG BID, LOVENOX 40MG SC DAILY, TYLENOL 650MG PO Q4H PRN. (2) Acute hypokalemia Status: Acute Plan: POTASSIUM PROTOCOL (3) C. difficile colitis Status: Acute (4) Colitis due to Campylobacter species Status: Acute (5) Bacteriuria Status: Acute (6) Generalized weakness Status: Acute (7) HTN (hypertension) Status: Chronic Qualifiers: Hypertension type: primary hypertension Qualified Code(s): I10 - Essential (primary) hypertension Plan: RESUME CARDIZEM AND CATAPRES (8) Major depressive disorder Status: Chronic Qualifiers: Major depression recurrence: recurrent Active/Remission status: remission status unspecified Qualified Code(s): F33.9 - Major depressive disorder, recurrent, unspecified Plan: RESUME ABILIFY AND CELEXA (9) GERD (gastroesophageal reflux disease) Status: Chronic Qualifiers: Esophagitis presence: esophagitis presence not specified Qualified Code(s): K21.9 - Gastro-esophageal reflux disease without esophagitis Plan: PEPCID, RESUME PROTONIX (10) Dementia Status: Chronic Qualifiers: Dementia type: unspecified type Dementia severity: unspecified severity Dementia behavioral or psychological symptom: with anxiety Qualified Code(s): F03.94 - Unspecified dementia, unspecified severity, with anxiety Plan: CONTINUE NAMENDA (11) Hyperlipidemia Status: Chronic Qualifiers: Hyperlipidemia type: mixed hyperlipidemia Qualified Code(s): E78.2 - Mixed hyperlipidemia Plan: CONTINUE CRESTOR
[2022-10-13] MEDS: ABILIFY PO SCH (21:21)
[2022-10-13] MEDS: NEURONTIN CAP 100 MG PO SCH (21:21)
[2022-10-13] MEDS: CELEXA PO SCH (21:21)
[2022-10-13] MEDS: CRESTOR TAB 10 MG PO SCH (21:21)
[2022-10-14] MEDS: NS + KCL 20 MEQ/L 1,000 ML IV SCH (00:46)
[2022-10-14] MEDS: BUTT CREAM (COMPOUND) TOP PRN (03:15)
[2022-10-14] MEDS: FLAGYL TAB 500 MG PO SCH ×3 (05:08→21:49)
[2022-10-14 05:35] LABS: EOSINOPHILS # (AUTO) 0.2 x10^3/uL (0.0-0.2); EOSINOPHILS % (AUTO) 4.6 % (0.9-2.9); HEMATOCRIT 35.6 % (36.0-47.0); HEMOGLOBIN 12.4 g/dL (12.0-16.0); LYMPHOCYTES # (AUTO) 1.3 X10^3/uL (1.3-2.9); LYMPHOCYTES % (AUTO) 27.4 % (21.0-51.0); MEAN CORPUSCULAR HEMOGLOBIN 32.2 pg (27.0-34.0); MEAN CORPUSCULAR HGB CONC 34.8 g/dL (33.0-35.0); MEAN CORPUSCULAR VOLUME 92.7 fL (80.0-100.0); MONOCYTES # (AUTO) 0.6 x10^3/uL (0.3-0.8); MONOCYTES % (AUTO) 11.6 % (0.0-13.0); NEUTROPHILS # (AUTO) 2.7 x10^3/uL (2.2-4.8); NEUTROPHILS % (AUTO) 55.4 % (42.0-75.0); PLATELET COUNT 186 X10^3/uL (150.0-450.0); RED BLOOD COUNT 3.84 X10^6/uL (3.5-5.4); RED CELL DISTRIBUTION WIDTH 13.8 % (11.6-16.5); WHITE BLOOD COUNT 4.9 X10^3/uL (3.6-10.0)
[2022-10-14 05:48] LABS: ALANINE AMINOTRANSFERASE 18 Units/L (12-78); ALBUMIN 2.7 g/dL (3.4-5.0); ALKALINE PHOSPHATASE 52 Units/L (46-116); ASPARTATE AMINO TRANSFERASE 24 Units/L (15-37); BLOOD UREA NITROGEN 4 mg/dL (7-18); CALCIUM 7.8 mg/dL (8.5-10.1); CARBON DIOXIDE 28.6 mmol/L (21-32); CHLORIDE 107 mmol/L (98-107); COR CA(FOR HYPOALB) 8.8 mg/dL (8.5-10.1); COR NA(FOR HYPERGLY) 143 mmol/L (136-145); CREATININE 0.79 mg/dL (0.55-1.02); GLUCOSE 118 mg/dL (65-99); MAGNESIUM 1.8 mg/dL (2.0-2.9); POTASSIUM 3.3 mmol/L (3.5-5.1); SODIUM 143 mmol/L (136-145); TOTAL PROTEIN 5.9 g/dL (6.4-8.2); eGFR NON BLACK RACES > 60 (>60)
[2022-10-14] MEDS ORDERED: K-DUR TAB 20 MEQ PO SCH ×2 (07:00→09:00)
[2022-10-14] MEDS ORDERED: CONSULT PHARMACY - POTASSIUM & MAGNESIUM XX SCH (07:00)
[2022-10-14] MEDS: NS + KCL 20 MEQ/L 1,000 ML with MAGNESIUM SULFATE 50% INJ VIAL 1 G IV SCH ×2 (08:28)
[2022-10-14] MEDS: CIPRO IV 400 MG PREMIX* 400 MG/200 ML IV.SOLN. IV SCH ×2 (08:30→21:49)
[2022-10-14] MEDS: CARDIZEM CD 240 MG 24-HR PO SCH (08:30)
[2022-10-14] MEDS: VSL#3 PO SCH (08:30)
[2022-10-14] MEDS: NAMENDA TAB 10 MG PO SCH ×2 (08:31→21:51)
[2022-10-14] MEDS: ESTRACE PO SCH (08:31)
[2022-10-14] MEDS: FERROUS GLUCONATE PO SCH (08:31)
[2022-10-14] MEDS: CATAPRES TAB 0.1 MG PO SCH ×2 (08:31→21:53)
[2022-10-14] MEDS: PROTONIX TAB 40 MG PO SCH (08:32)
[2022-10-14] MEDS: LOVENOX INJ 40 MG SYR SC SCH (08:32)
[2022-10-14] MEDS: PEPCID TAB 20 MG PO SCH ×2 (08:32→21:51)
[2022-10-14] MEDS ORDERED: MAG-OX TAB PO SCH (09:00)
[2022-10-14] MEDS ORDERED: K-DUR TAB 20 MEQ PO ONE (09:00)
[2022-10-14] MEDS ORDERED: MAG-OX TAB PO ONE (10:00)
--- NOTE | 2022-10-14 11:09 | PCM.PROG ---
Progress Note - Progress Note for Day of Date of Exam: 10/14/22 - Subjective Subjective: IS CURRENTLY OBSERVATION STATUS FOR TREATMENT OF DEHYDRATION, ACUTE HYPOKALEMIA, C.DIFF COLITIS, COLITIS DUE TO CAMPYLOBACTER, BACTERIURIA, AND GENERALIZED WEAKNESS. SHE HAS A PMH OF HTN, HYPERLIPIDEMIA, DEMENTIA, GERD, RLS, , AND HYSTERECTOMY. TODAY, SHE IS ALERT AND ORIENTED, LYING IN BED ON MORNING ROUNDS. SHE CONTINUES TO COMPLAIN OF WEAKNESS, BUT DOES REPORT SLIGHT IMPROVEMENT IN SYMPTOMS SINCE ADMISSION. HER DAUGHTER IS AT BEDSIDE AND REPORTS THAT SHE WAS CONFUSED AND DID NOT SLEEP THROUGHOUT THE NIGHT. SHE IS ABLE TO ANSWER QUESTIONS AND FOLLOW COMMANDS APPROPRIATELY THIS MORNING. ON EXAMINATION, HEART IS REGULAR IN RATE AND RHYTHM. BILATERAL LUNG ARE NOTED WITH DIMINISHED LUNG SOUNDS THROUGHOUT. ABDOMEN IS ROUND, SOFT, AND NON- TENDER WITH NORMAL BOWEL SOUNDS NOTED IN ALL QUADRANTS. GOOD RANGE OF MOTION NOTED TO UPPER AND LOWER EXTREMITIES WITH NO EDEMA NOTED. HER VITALS THIS MORNING ARE: 98.0-83-25-100%-156/70. LABS WERE OBTAINED. WBC 4.9, RBC 3.84, HGB 12.4, HCT 35.6, PLT COUNT 186, SODIUM 143, POTASSIUM 3.3, CHLORIDE 107, BUN 4, CREATININE 0.79, GLUCOSE 118, CALCIUM 7.8, MAGNESIUM 1.8, AST 24, ALT 18, ALK PHOS 52, TOTAL PROTEIN 5.9, ALBUMIN 2.7. STOOL CULTURES ARE PENDING. SHE IS CURRENTLY RECEIVING NORMAL SALINE AT 80 ML/HR, FLAGYL 500MG PO Q6H, CIPRO 400MG IV Q12H, VSL 2 CAPS DAILY, PEPCID 20MG BID, LOVENOX 40MG SC DAILY, TYLENOL 650MG PO Q4H PRN. HER HOME MEDICATIONS OF ABILIFY, CELEXA, CATAPRES, CARDIZEM, ESTRACE, FERROUS GLUCONATE, NEURONTIN, NAMENDA, PROTONIX, AND CRESTOR WERE RESUMED. WE WILL CONTINUE WITH CURRENT PLAN OF CARE TODAY AND ADD RESTORIL 15MG PO HS. WE WILL HAVE PHYSICAL THERAPY WORK WITH HER TODAY. OTHERWISE, WE WILL F OLLOW UP WITH AM LABS AND CONTINUE TO MONITOR. TIME SPENT ON CLINICAL ASSESSMENT, REVIEWING LABS AND IMAGING, DECISION MAKING, AND DOCUMENTATION GREATER THAN 45 MINUTES. - Past Medical Family Social History Past Med/Fam/Surg Hx: No changes since H&P Allergies: Allergies codeine Allergy (Verified 09/15/22 14:04) - Review of Systems ROS: No change since H&P - Vital Signs and I&O's Vital Signs: Vital Signs Temperature 98.0 F Pulse Rate 76 Pulse Rate 75 Pulse Rate 83 Pulse Rate 94 Pulse Rate 94 Pulse Rate 79 Pulse Rate 72 Pulse Rate 81 Pulse Rate 73 Pulse Rate 76 Pulse Rate 69 Pulse Rate 75 Pulse Rate 67 Respiratory Rate 17 Respiratory Rate 17 Respiratory Rate 25 Respiratory Rate 22 Respiratory Rate 25 Respiratory Rate 18 Respiratory Rate 16 Respiratory Rate 18 Respiratory Rate 19 Respiratory Rate 16 Respiratory Rate 16 Respiratory Rate 19 Respiratory Rate 17 Blood Pressure 156/70 Blood Pressure 182/82 Blood Pressure 198/92 Blood Pressure 184/81 Blood Pressure 189/90 Blood Pressure 170/76 Blood Pressure 170/76 O2 Sat by Pulse Oximetry 100 O2 Sat by Pulse Oximetry 99 O2 Sat by Pulse Oximetry 100 O2 Sat by Pulse Oximetry 100 O2 Sat by Pulse Oximetry 100 O2 Sat by Pulse Oximetry 96 O2 Sat by Pulse Oximetry 97 O2 Sat by Pulse Oximetry 96 O2 Sat by Pulse Oximetry 98 O2 Sat by Pulse Oximetry 100 O2 Sat by Pulse Oximetry 98 O2 Sat by Pulse Oximetry 99 O2 Sat by Pulse Oximetry 98 Intake and Output: Intake & Output 10/11/22 10/12/22 10/13/22 10/14/22 11:59 11:59 11:59 11:59 Intake Total 1204 / 1204 2614 / 2614 2537 / 2537 Balance 1204 / 1204 2614 / 2614 2537 / 2537 - Physical Exam Oriented: Normal Eyes: Normal Ear: Normal Nose: Normal Throat: Normal Respiratory: Generalized, Diminished Cardiovascular: Normal : Normal Auscultation: Bowel Sounds: Normal Palpation: Normal Tenderness: Diffuse, Mild Skin: Decreased [place] Musculoskeletal: Normal Psychiatric: Normal Mood Description: Calm Affect: Normal Speech Pattern: Clear, Appropriate - Laboratory and Diagnostics Result Diagrams: 10/14/22 04:05 10/14/22 04:05 Labs: 10/11/22 15:02 Stool Stool Culture - Final 10/11/22 15:02 Stool - Final Laboratory WBC 4.9 X10^3/uL (3.6-10.0) 10/14/22 04:05 RBC 3.84 X10^6/uL (3.5-5.4) 10/14/22 04:05 Hgb 12.4 g/dL (12.0-16.0) 10/14/22 04:05 Hct 35.6 % (36.0-47.0) L 10/14/22 04:05 MCV 92.7 fL (80.0-100.0) 10/14/22 04:05 MCH 32.2 pg (27.0-34.0) 10/14/22 04:05 MCHC 34.8 g/dL (33.0-35.0) 10/14/22 04:05 RDW 13.8 % (11.6-16.5) 10/14/22 04:05 Plt Count 186 X10^3/uL (150.0-450.0) 10/14/22 04:05 MPV 8.0 fL (7.4-11.0) 10/14/22 04:05 Neut % (Auto) 55.4 % (42.0-75.0) 10/14/22 04:05 Lymph % (Auto) 27.4 % (21.0-51.0) 10/14/22 04:05 [place] % (Auto) 11.6 % (0.0-13.0) 10/14/22 04:05 Eos % (Auto) 4.6 % (0.9-2.9) H 10/14/22 04:05 Baso % (Auto) 1.0 % (0.2-1.0) 10/14/22 04:05 Neut # (Auto) 2.7 x10^3/uL (2.2-4.8) 10/14/22 04:05 Lymph # (Auto) 1.3 X10^3/uL (1.3-2.9) 10/14/22 04:05 [place] # (Auto) 0.6 x10^3/uL (0.3-0.8) 10/14/22 04:05 Eos # (Auto) 0.2 x10^3/uL (0.0-0.2) 10/14/22 04:05 Baso # (Auto) 0.0 X10^3/uL (0.0-0.1) 10/14/22 04:05 Absolute Nucleated RBC 0.1 /100WBC 10/14/22 04:05 Sodium 143 mmol/L (136-145) 10/14/22 04:05 Corrected Sodium 143 mmol/L (136-145) 10/14/22 04:05 Potassium 3.3 mmol/L (3.5-5.1) L 10/14/22 04:05 Chloride 107 mmol/L (98-107) 10/14/22 04:05 Carbon Dioxide 28.6 mmol/L (21-32) 10/14/22 04:05 BUN 4 mg/dL (7-18) L 10/14/22 04:05 Creatinine 0.79 mg/dL (0.55-1.02) 10/14/22 04:05 Est GFR (MDRD) Af Amer > 60 (>60) 10/14/22 04:05 Est GFR (MDRD) Non-Af > 60 (>60) 10/14/22 04:05 Glucose 118 mg/dL (65-99) H 10/14/22 04:05 Calcium 7.8 mg/dL (8.5-10.1) L 10/14/22 04:05 Corrected Calcium 8.8 mg/dL (8.5-10.1) 10/14/22 04:05 Magnesium 1.8 mg/dL (2.0-2.9) L 10/14/22 04:05 Total Bilirubin 0.40 mg/dL (0.2-1.0) 10/14/22 04:05 AST 24 Units/L (15-37) 10/14/22 04:05 ALT 18 Units/L (12-78) 10/14/22 04:05 Alkaline Phosphatase 52 Units/L (46-116) 10/14/22 04:05 Creatine Kinase 39 Units/L (26-192) 10/11/22 13:31 Troponin I High Sens 6.0 ng/L (4.0-60.0) 10/11/22 13:31 Total Protein 5.9 g/dL (6.4-8.2) L 10/14/22 04:05 Albumin 2.7 g/dL (3.4-5.0) L 10/14/22 04:05 Globulin 3.2 g/dL (2.5-4.5) 10/14/22 04:05 Albumin/Globulin Ratio 0.8 Ratio (1.1-2.1) L 10/14/22 04:05 Amylase 16 Units/L (25-115) L 10/11/22 13:31 Lipase 38 Units/L (73-393) L 10/11/22 13:31 Specimen Type Clean catch urine 10/11/22 14:50 Urine Color Dark yellow (YELLOW) 10/11/22 14:50 Urine Appearance Hazy (CLEAR) 10/11/22 14:50 Urine pH 6.0 (5.0 - 8.0) 10/11/22 14:50 Ur Specific [place] 1.025 (1.000-1.030) 10/11/22 14:50 Urine Protein 1+ (NEGATIVE) 10/11/22 14:50 Urine Glucose (UA) Negative (NEGATIVE) 10/11/22 14:50 Urine Ketones Negative (NEGATIVE) 10/11/22 14:50 Urine Blood 1+ (NEGATIVE) 10/11/22 14:50 Urine Nitrite Negative (NEGATIVE) 10/11/22 14:50 Urine Bilirubin Negative (NEGATIVE) 10/11/22 14:50 Urine Urobilinogen Normal (NORMAL) 10/11/22 14:50 Ur Leukocyte Esterase Negative (NEGATIVE) 10/11/22 14:50 Urine RBC 0-2 /HPF (0-3) 10/11/22 14:50 Urine WBC 3-5 /HPF (0-5) 10/11/22 14:50 Ur Squamous Epith Cells Moderate /HPF (NEGATIVE) 10/11/22 14:50 Urine Bacteria Trace /HPF (NEGATIVE) 10/11/22 14:50 Urine Mucus Few /HPF (NEGATIVE) 10/11/22 14:50 Ur Culture Indicated? No/not indicated 10/11/22 14:50 Stl C. diff Tox B Gene Positive (NEGATIVE) A 10/11/22 15:02 Stl C. diff [id number] Presumptive positive (NEGATIVE) 10/11/22 15:02 C. difficile Toxin A&B Positive (NEGATIVE) A 10/11/22 15:02 Cryptosporid parvum Ag Negative (NEGATIVE) 10/11/22 15:02 Giardia lamblia Ag Negative (NEGATIVE) 10/11/22 15:02 - Plan (1) Dehydration Status: Acute Plan: NORMAL SALINE AT 80 ML/HR, FLAGYL 500MG PO Q6H, CIPRO 400MG IV Q12H, VSL 2 CAPS DAILY, PEPCID 20MG BID, LOVENOX 40MG SC DAILY, TYLENOL 650MG PO Q4H PRN, RESTORIL 15MG PO HS. (2) Acute hypokalemia Status: Acute Plan: POTASSIUM PROTOCOL (3) C. difficile colitis Status: Acute (4) Colitis due to Campylobacter species Status: Acute (5) Bacteriuria Status: Acute (6) Generalized weakness Status: Acute (7) HTN (hypertension) Status: Chronic Qualifiers: Hypertension type: primary hypertension Qualified Code(s): I10 - Essential (primary) hypertension Plan: RESUME CARDIZEM AND CATAPRES (8) Major depressive disorder Status: Chronic Qualifiers: Major depression recurrence: recurrent Active/Remission status: remission status unspecified Qualified Code(s): F33.9 - Major depressive disorder, recurrent, unspecified Plan: RESUME ABILIFY AND CELEXA (9) GERD (gastroesophageal reflux disease) Status: Chronic Qualifiers: Esophagitis presence: esophagitis presence not specified Qualified Code(s): K21.9 - Gastro-esophageal reflux disease without esophagitis Plan: PEPCID, RESUME PROTONIX (10) Dementia Status: Chronic Qualifiers: Dementia type: unspecified type Dementia severity: unspecified severity Dementia behavioral or psychological symptom: with anxiety Qualified Code(s): F03.94 - Unspecified dementia, unspecified severity, with anxiety Plan: CONTINUE NAMENDA (11) Hyperlipidemia Status: Chronic Qualifiers: Hyperlipidemia type: mixed hyperlipidemia Qualified Code(s): E78.2 - Mixed hyperlipidemia Plan: CONTINUE CRESTOR
[2022-10-14] MEDS ORDERED: KLONOPIN TAB 0.5 MG PO PRN (18:00)
[2022-10-14] MEDS ORDERED: RESTORIL CAP 15 MG PO SCH (21:00)
[2022-10-14] MEDS: CELEXA PO SCH (21:49)
[2022-10-14] MEDS: ABILIFY PO SCH (21:51)
[2022-10-14] MEDS: CRESTOR TAB 10 MG PO SCH (21:51)
[2022-10-14] MEDS: NEURONTIN CAP 100 MG PO SCH (21:51)
[2022-10-15] MEDS: NS + KCL 20 MEQ/L 1,000 ML with MAGNESIUM SULFATE 50% INJ VIAL 1 G IV SCH ×6 (04:27→11:29)
[2022-10-15 05:07] LABS: BASOPHILS # (AUTO) 0.1 X10^3/uL (0.0-0.1); BASOPHILS % (AUTO) 2.3 % (0.2-1.0); EOSINOPHILS # (AUTO) 0.2 x10^3/uL (0.0-0.2); EOSINOPHILS % (AUTO) 3.8 % (0.9-2.9); HEMOGLOBIN 11.8 g/dL (12.0-16.0); LYMPHOCYTES # (AUTO) 1.1 X10^3/uL (1.3-2.9); LYMPHOCYTES % (AUTO) 21.8 % (21.0-51.0); MEAN CORPUSCULAR HEMOGLOBIN 32.3 pg (27.0-34.0); MEAN CORPUSCULAR HGB CONC 34.9 g/dL (33.0-35.0); MEAN CORPUSCULAR VOLUME 92.7 fL (80.0-100.0); MEAN PLATELET VOLUME 7.6 fL (7.4-11.0); MONOCYTES # (AUTO) 0.5 x10^3/uL (0.3-0.8); MONOCYTES % (AUTO) 9.4 % (0.0-13.0); NEUTROPHILS # (AUTO) 3.2 x10^3/uL (2.2-4.8); NEUTROPHILS % (AUTO) 62.7 % (42.0-75.0); PLATELET COUNT 181 X10^3/uL (150.0-450.0); RED BLOOD COUNT 3.66 X10^6/uL (3.5-5.4); RED CELL DISTRIBUTION WIDTH 13.7 % (11.6-16.5); WHITE BLOOD COUNT 5.1 X10^3/uL (3.6-10.0)
[2022-10-15] MEDS: FLAGYL TAB 500 MG PO SCH (05:17)
[2022-10-15 05:24] LABS: ALANINE AMINOTRANSFERASE 16 Units/L (12-78); ALBUMIN 2.5 g/dL (3.4-5.0); ALKALINE PHOSPHATASE 50 Units/L (46-116); ASPARTATE AMINO TRANSFERASE 28 Units/L (15-37); BLOOD UREA NITROGEN 3 mg/dL (7-18); CALCIUM 7.7 mg/dL (8.5-10.1); CARBON DIOXIDE 30.4 mmol/L (21-32); CHLORIDE 106 mmol/L (98-107); COR CA(FOR HYPOALB) 8.9 mg/dL (8.5-10.1); CREATININE 0.93 mg/dL (0.55-1.02); GLUCOSE 110 mg/dL (65-99); MAGNESIUM 2.1 mg/dL (2.0-2.9); POTASSIUM 3.7 mmol/L (3.5-5.1); SODIUM 140 mmol/L (136-145); TOTAL PROTEIN 5.4 g/dL (6.4-8.2); eGFR NON BLACK RACES > 60 (>60)
[2022-10-15 05:41] LABS: PLATELET MORPHOLOGY COMMENT NORMAL (NORMAL)
[2022-10-15] MEDS ORDERED: CONSULT PHARMACY - POTASSIUM & MAGNESIUM XX SCH (07:00)
[2022-10-15] MEDS ORDERED: K-DUR TAB 20 MEQ PO SCH (09:00)
[2022-10-15] MEDS: CARDIZEM CD 240 MG 24-HR PO SCH (09:20)
[2022-10-15] MEDS: CIPRO IV 400 MG PREMIX* 400 MG/200 ML IV.SOLN. IV SCH (09:20)
[2022-10-15] MEDS: NAMENDA TAB 10 MG PO SCH (09:20)
[2022-10-15] MEDS: CATAPRES TAB 0.1 MG PO SCH (09:21)
[2022-10-15] MEDS: ESTRACE PO SCH (09:21)
[2022-10-15] MEDS: VSL#3 PO SCH (09:21)
[2022-10-15] MEDS: LOVENOX INJ 40 MG SYR SC SCH (09:21)
[2022-10-15] MEDS: FERROUS GLUCONATE PO SCH (09:21)
[2022-10-15] MEDS: PROTONIX TAB 40 MG PO SCH (09:21)
[2022-10-15] MEDS: PEPCID TAB 20 MG PO SCH (09:21)
[2022-10-15 09:30] VITALS: BP 114/53; PULSE 68; RESP 22; TEMP 97.6; O2SAT 98
== END 2022-10-15 13:00 | disposition home health service (06) ==
LOC: U 11:35 → ER 11:35 → U 21:15 → ICU 10-12 02:40
PROVIDERS: ADMIT Internal Medicine; ATTEND Internal Medicine
DX: E86.0 Dehydration; R10.84 Generalized abdominal pain; R41.82 Altered mental status, unspecified; F03.94 Unspecified dementia, unspecified severity, with anxiety; R26.89 Other abnormalities of gait and mobility; F33.9 Major depressive disorder, recurrent, unspecified; N39.0 Urinary tract infection, site not specified; Z73.89 Other problems related to life management difficulty; E87.6 Hypokalemia; R53.1 Weakness; E78.2 Mixed hyperlipidemia; A04.71 Enterocolitis due to Clostridium difficile, recurrent; A04.5 Campylobacter enteritis; I10 Essential (primary) hypertension; K21.9 Gastro-esophageal reflux disease without esophagitis; R82.71 Bacteriuria

== ENCOUNTER 2022-12-20 14:23 | Observation (INO) ==
[2022-12-20] MEDS ORDERED: PEPCID 20 MG VIAL 20 MG in NS 50 ML IV 50 ML IV SCH (16:36)
[2022-12-20] MEDS ORDERED: CONSULT PHARMACY - POTASSIUM & MAGNESIUM XX SCH (16:36)
[2022-12-20 17:16] LABS: BASOPHILS % (AUTO) 0.5 % (0.2-1.0); EOSINOPHILS # (AUTO) 0.1 x10^3/uL (0.0-0.2); EOSINOPHILS % (AUTO) 2.6 % (0.9-2.9); HEMATOCRIT 37.3 % (36.0-47.0); HEMOGLOBIN 12.7 g/dL (12.0-16.0); LYMPHOCYTES # (AUTO) 1.5 X10^3/uL (1.3-2.9); MEAN CORPUSCULAR HEMOGLOBIN 32.5 pg (27.0-34.0); MEAN CORPUSCULAR HGB CONC 34.2 g/dL (33.0-35.0); MEAN CORPUSCULAR VOLUME 95.1 fL (80.0-100.0); MEAN PLATELET VOLUME 7.8 fL (7.4-11.0); MONOCYTES # (AUTO) 0.4 x10^3/uL (0.3-0.8); MONOCYTES % (AUTO) 8.2 % (0.0-13.0); NEUTROPHILS # (AUTO) 2.9 x10^3/uL (2.2-4.8); NEUTROPHILS % (AUTO) 57.7 % (42.0-75.0); PLATELET COUNT 173 X10^3/uL (150.0-450.0); RED BLOOD COUNT 3.92 X10^6/uL (3.5-5.4); RED CELL DISTRIBUTION WIDTH 13.6 % (11.6-16.5)
[2022-12-20 17:36] LABS: ALANINE AMINOTRANSFERASE 28 Units/L (12-78); ALBUMIN 3.1 g/dL (3.4-5.0); ALKALINE PHOSPHATASE 49 Units/L (46-116); ASPARTATE AMINO TRANSFERASE 30 Units/L (15-37); BLOOD UREA NITROGEN 12 mg/dL (7-18); CALCIUM 8.1 mg/dL (8.5-10.1); CARBON DIOXIDE 32.3 mmol/L (21-32); CHLORIDE 102 mmol/L (98-107); COR CA(FOR HYPOALB) 8.8 mg/dL (8.5-10.1); COR NA(FOR HYPERGLY) 139 mmol/L (136-145); CREATININE 0.98 mg/dL (0.55-1.02); GLUCOSE 116 mg/dL (65-99); POTASSIUM 3.2 mmol/L (3.5-5.1); SODIUM 139 mmol/L (136-145); TOTAL PROTEIN 6.2 g/dL (6.4-8.2); eGFR NON BLACK RACES 57 (>60)
[2022-12-20] MEDS: PROTONIX INJ 40 MG VIAL IVP SCH ×2 (18:00→22:00)
[2022-12-20] MEDS: INVanz INJ 1 GRAM VIAL 1 G in NS 100 ML IV 100 ML IV SCH (18:00)
[2022-12-20] MEDS ORDERED: K-DUR TAB 20 MEQ PO ONE (18:00)
[2022-12-20] MEDS: NS 1,000 ML IV 1,000 ML IV SCH (18:00)
[2022-12-20 18:07] VITALS: BMI 25.9
[2022-12-20] MEDS: MAG-OX TAB PO SCH ×2 (19:00→20:00)
[2022-12-21 02:32] LABS: BILIRUBIN,URINE NEGATIVE (NEGATIVE); BLOOD/HEMOGLOBIN,URINE 3+ (NEGATIVE); GLUCOSE, URINE NEGATIVE (NEGATIVE); KETONES,URINE NEGATIVE (NEGATIVE); LEUKOCYTE ESTERASE ,URINE 3+ (NEGATIVE); NITRITES,URINE NEGATIVE (NEGATIVE); PROTEIN,URINE 2+ (NEGATIVE); UROBILINOGEN,URINE NORMAL (NORMAL)
[2022-12-21 02:53] LABS: APPEARANCE,URINE CLOUDY (CLEAR); BACTERIA,URINE 1+ /HPF (NEGATIVE); COLOR,URINE YELLOW (YELLOW); SQUAMOUS EPITHELIAL CELL,UR FEW /HPF (NEGATIVE)
[2022-12-21 03:20] LABS: CRYPTOSPORIDIUM PARVUM ANTIGEN NEGATIVE (NEGATIVE); GIARDIA LAMBLIA ANTIGEN NEGATIVE (NEGATIVE)
[2022-12-21] MEDS: NS 1,000 ML IV 1,000 ML IV SCH ×2 (06:19→08:28)
[2022-12-21 06:25] LABS: BASOPHILS % (AUTO) 0.6 % (0.2-1.0); EOSINOPHILS # (AUTO) 0.2 x10^3/uL (0.0-0.2); EOSINOPHILS % (AUTO) 3.3 % (0.9-2.9); HEMATOCRIT 35.2 % (36.0-47.0); HEMOGLOBIN 12.2 g/dL (12.0-16.0); LYMPHOCYTES # (AUTO) 1.7 X10^3/uL (1.3-2.9); LYMPHOCYTES % (AUTO) 33.9 % (21.0-51.0); MEAN CORPUSCULAR HEMOGLOBIN 32.9 pg (27.0-34.0); MEAN CORPUSCULAR HGB CONC 34.7 g/dL (33.0-35.0); MEAN CORPUSCULAR VOLUME 94.6 fL (80.0-100.0); MEAN PLATELET VOLUME 8.2 fL (7.4-11.0); MONOCYTES # (AUTO) 0.4 x10^3/uL (0.3-0.8); MONOCYTES % (AUTO) 7.3 % (0.0-13.0); NEUTROPHILS # (AUTO) 2.7 x10^3/uL (2.2-4.8); NEUTROPHILS % (AUTO) 54.9 % (42.0-75.0); PLATELET COUNT 144 X10^3/uL (150.0-450.0); RED BLOOD COUNT 3.72 X10^6/uL (3.5-5.4); RED CELL DISTRIBUTION WIDTH 13.6 % (11.6-16.5); WHITE BLOOD COUNT 4.9 X10^3/uL (3.6-10.0)
[2022-12-21 07:41] LABS: ALANINE AMINOTRANSFERASE 35 Units/L (12-78); ALBUMIN 2.8 g/dL (3.4-5.0); ALKALINE PHOSPHATASE 44 Units/L (46-116); ASPARTATE AMINO TRANSFERASE 43 Units/L (15-37); BLOOD UREA NITROGEN 11 mg/dL (7-18); CALCIUM 7.9 mg/dL (8.5-10.1); CARBON DIOXIDE 29.3 mmol/L (21-32); CHLORIDE 105 mmol/L (98-107); COR CA(FOR HYPOALB) 8.9 mg/dL (8.5-10.1); GLUCOSE 102 mg/dL (65-99); POTASSIUM 3.9 mmol/L (3.5-5.1); SODIUM 142 mmol/L (136-145); TOTAL PROTEIN 5.6 g/dL (6.4-8.2); eGFR NON BLACK RACES > 60 (>60)
[2022-12-21] MEDS: PROTONIX INJ 40 MG VIAL IVP SCH ×2 (08:58→20:53)
[2022-12-21] MEDS: PEPCID 20 MG VIAL 20 MG in NS 50 ML IV 50 ML IV SCH (08:59)
[2022-12-21] MEDS: INVanz INJ 1 GRAM VIAL 1 G in NS 100 ML IV 100 ML IV SCH (08:59)
[2022-12-21] MEDS ORDERED: FERROUS GLUCONATE PO SCH (10:14)
[2022-12-21] MEDS ORDERED: PROTONIX TAB 40 MG PO SCH (10:15)
[2022-12-21] MEDS ORDERED: OMNIPAQUE 350 mg/mL 100 mL BTL 100 ML ONE (10:27)
[2022-12-21] MEDS ORDERED: READI-CAT 2 ONE (10:27)
--- NOTE | 2022-12-21 10:47 | DR.UPDATE ---
H&P Update Prescription drug monitoring program results: PDMP reviewed and no concerns identified H&P Reviewed: Yes Any changes to H&P?: Yes Changes noted:: WAS A DIRECT ADMISSION FOR TREATMENT OF UTI, FAILED OUTPATIENT TREATMENT, ABDOMINAL PAIN, AND BLOOD IN STOOL. PATIENT REPORTS DIFFICULTY URINATING WITH A MODERATE BURING SENSATION, FLANK PAIN, AND ABDOMIAN PAIN FOR THE PAST TWO WEEKS. ADDITIONALLY, PATIENT ADMITS TO NOTICING BLOOD IN HER STOOL. SHE WAS TREATED FOR A URINARY TRACT INFECTION WITH CIPRO 500MG BID X 7 DAYS. SHE STARTED THE CIPRO ON 12/15/22. SHE DENIES IMPROVEMENT IN SYMPTOMS DESPITE COMPLIANCE WITH ANTIBIOTICS. ON ADMISSION, HER VITALS WERE: 98.3-67-18-95%-136/65. LABS WERE OBTAINED. WBC 5.0, RBC 3.92, HGB 12.7, HCT 37.3, PLT COUNT 173, SODIUM 139, POTASSIUM 3.2, CHLORIDE 102, CARBON DIOXIDE 32.3, BUN 12, CREATININE 0.98, GLUCOSE 116, CALCIUM 8.1, MAGNESIUM 1.9, AST 30, ALT 28, ALK PHOS 49, TOTAL PROTEIN 6.2, ALBUMIN 3.1. URINALYSIS REVEALED: WBC TNTC, RBC 5-10, LEUKOCYTES 3+, BACTERIA 1+. A URINE, STOOL, AND BLOOD CULTURES WERE SET UP. STOOL WAS POSITIVE FOR OCCULT BLOOD AND WHITE CELLS. C-DIFF AND H- PYLORI WERE NEGATIVE. CRYPTOSPORIDIUM PARVUM AND GIARDIA WERE ALSO NEGATIVE. ON ADMISSION, SHE WAS STARTED ON NORMAL SALINE AT 80 ML/HR, INVANZ 1G IV DAILY, PEPCID 20MG IV DAILY, PROTONIX 40MG IV BID. HER HOME MEDICATIONS OF ABILIFY, VITAMIN D3, CELEXA, CATAPRES, CARDIZEM CD, ESTRACE, FERROUS GLUCONATE, NEURONTN, HCTZ, NAMENDA, AND CRESTOR, WERE ALSO RESUMED. WE WILL OBTAIN AN ABDOMEN/PELVIS CT WITH CONTRAST TO RULE OUT PYELONEPHRITIS. WE WILL CONSULT DUE TO PERSISTENT ABDOMINAL PAIN AND BLOOD IN STOOL. OTHERWISE, WE PLAN TO FOLLOW UP WITH AM LABS AND CONTINUE TO MONITOR. TIME SPENT ON CLINICAL ASSESSMENT, REVIEWING LABS AND IMAGING, DECISION MAKING, AND DOCUMENTATION GREATER THAN 75 MINUTES. Patient was examined?: Yes Vital Signs: Temp Pulse Resp BP Pulse Ox O2 Del Method 12/21/22 07:00 Room Air 12/21/22 08:00 97.1 F L 60 18 137/65 94 L Room Air 12/21/22 04:00 97.9 F 51 L 18 117/56 95 Room Air 12/21/22 00:00 98.4 F 54 L 18 125/59 96 Room Air 12/20/22 19:00 Room Air 12/20/22 20:00 98.9 F 60 20 136/61 96 Room Air 12/20/22 16:36 Room Air 12/20/22 18:19 98.3 F 67 18 136/65 95 Room Air
[2022-12-21] MEDS: HYDROCHLOROTHIAZIDE 12.5 MG CAP PO SCH (10:58)
[2022-12-21] MEDS: ESTRACE PO SCH (10:58)
[2022-12-21] MEDS: CARDIZEM CD 240 MG 24-HR PO SCH (10:58)
[2022-12-21] MEDS: NAMENDA TAB 10 MG PO SCH ×2 (10:58→20:53)
[2022-12-21] MEDS: CATAPRES TAB 0.1 MG PO SCH ×2 (11:00→20:53)
[2022-12-21] MEDS: VITAMIN D3 125 mcg (5,000 UNITS) PO SCH (11:00)
[2022-12-21] MEDS: FERROUS GLUCONATE PO SCH (11:00)
[2022-12-21] MEDS ORDERED: BUTT CREAM (COMPOUND) TOP PRN (12:07)
[2022-12-21] MEDS ORDERED: BUTT CREAM (COMPOUND) ONE (12:10)
--- NOTE | 2022-12-21 13:57 | CT ---
EXAM:ABDCMEN/PELVIS WITH CONHISTORY:HEMATURIA, BLOOD IN STOOL;COMPARISON:None.TECHNIQUE:Multiple axial images of the abdomen and pelvis were obtained from the lung bases to the pubic symphysis after the administration of IV contrast. Dose reduction techniques including Automated Exposure Control (AEC) and adjustment of mA and kV were utilized.FINDINGS:Postcontrast evaluation of the abdomen was performed and imaging was acquired during the excretion phase of contrast therefore obscuring anatomic detail of the calices 4 occult renal stones.There is a small dependent left and trace right pleural effusion with adjacent enhancing atelectasis. No acute abnormalities of the liver. A gallstone is seen dependently within the gallbladder without acute inflammatory change. No acute abnormalities of the spleen or pancreas or adrenal glands. Both kidneys excrete contrast in a timely fashion. There is no evidence of hydronephrosis. No well-delineated filling defects are demonstrated along the opacified coarse of the left and right ureter which maintain a normal caliber. There is no asymmetric bladder wall thickening. There is no abnormal parenchymal enhancement of the right or left kidney. Specifically, no complex cysts or enhancing solid lesions are observed during this phase of imaging.No evidence of free air or free fluid within the abdomen.Negative for bowel obstruction. No aggressively thickened or acutely inflamed bowel segments. The appendix is not identified but there are no inflammatory changes observed in the right lower quadrant. Normal caliber aorta with mild atherosclerotic changes. No enlarged lymph nodes identifiedThe uterus is surgically absent. There is no pathologic adnexal asymmetry. There is no pelvic sidewall, inguinal, or iliac chain lymphadenopathy. There is evidence of multilevel degenerative disc space narrowing and spondylosis of the thoracolumbar spine associated with scoliotic curvature. No aggressive bony lesions or acute osseous abnormalities are demonstrated.IMPRESSION:Cholelithiasis without evidence of acute cholecystitisSmall dependent bilateral pleural effusions with passive atelectasisNo localizing source of hematuria identified. No localizing source of acute inflammation observed within the abdomen or pelvisAdditional chronic, postsurgical, and age-related degenerative imaging findings as detailed above.THIS IS AN ELECTRONICALLY VERIFIED FINAL [id number]/21/2022 1:53 PM - Electronically signed by Nawaf Chen MD
[2022-12-21] MEDS: ABILIFY PO SCH (20:52)
[2022-12-21] MEDS: CRESTOR TAB 10 MG PO SCH (20:52)
[2022-12-21] MEDS: CELEXA PO SCH (20:53)
[2022-12-21] MEDS: NEURONTIN CAP 100 MG PO SCH (20:53)
[2022-12-22] MEDS ORDERED: HIBICLENS WASH ONE (04:44)
[2022-12-22] MEDS ORDERED: HIBICLENS WASH EXT ONE (04:50)
[2022-12-22] MEDS: NS 1,000 ML IV 1,000 ML IV SCH (06:23)
[2022-12-22 06:45] LABS: BASOPHILS % (AUTO) 0.8 % (0.2-1.0); EOSINOPHILS # (AUTO) 0.2 x10^3/uL (0.0-0.2); EOSINOPHILS % (AUTO) 3.6 % (0.9-2.9); HEMATOCRIT 37.4 % (36.0-47.0); HEMOGLOBIN 12.6 g/dL (12.0-16.0); LYMPHOCYTES # (AUTO) 1.5 X10^3/uL (1.3-2.9); LYMPHOCYTES % (AUTO) 30.3 % (21.0-51.0); MEAN CORPUSCULAR HEMOGLOBIN 32.1 pg (27.0-34.0); MEAN CORPUSCULAR HGB CONC 33.7 g/dL (33.0-35.0); MEAN CORPUSCULAR VOLUME 95.3 fL (80.0-100.0); MEAN PLATELET VOLUME 8.1 fL (7.4-11.0); MONOCYTES # (AUTO) 0.4 x10^3/uL (0.3-0.8); MONOCYTES % (AUTO) 8.2 % (0.0-13.0); NEUTROPHILS # (AUTO) 2.8 x10^3/uL (2.2-4.8); NEUTROPHILS % (AUTO) 57.1 % (42.0-75.0); PLATELET COUNT 155 X10^3/uL (150.0-450.0); RED BLOOD COUNT 3.92 X10^6/uL (3.5-5.4); RED CELL DISTRIBUTION WIDTH 13.8 % (11.6-16.5)
[2022-12-22 07:09] LABS: ALANINE AMINOTRANSFERASE 30 Units/L (12-78); ALKALINE PHOSPHATASE 49 Units/L (46-116); ASPARTATE AMINO TRANSFERASE 34 Units/L (15-37); BLOOD UREA NITROGEN 6 mg/dL (7-18); CALCIUM 7.9 mg/dL (8.5-10.1); CARBON DIOXIDE 31.8 mmol/L (21-32); CHLORIDE 105 mmol/L (98-107); COR CA(FOR HYPOALB) 8.7 mg/dL (8.5-10.1); CREATININE 0.88 mg/dL (0.55-1.02); GLUCOSE 97 mg/dL (65-99); POTASSIUM 3.6 mmol/L (3.5-5.1); SODIUM 141 mmol/L (136-145); eGFR NON BLACK RACES > 60 (>60)
[2022-12-22] MEDS ORDERED: CONSULT PHARMACY - POTASSIUM & MAGNESIUM XX SCH (08:00)
[2022-12-22] MEDS: HYDROCHLOROTHIAZIDE 12.5 MG CAP PO SCH (09:25)
[2022-12-22] MEDS: CATAPRES TAB 0.1 MG PO SCH ×2 (09:25→20:14)
[2022-12-22] MEDS: ESTRACE PO SCH (09:25)
[2022-12-22] MEDS: FERROUS GLUCONATE PO SCH (09:26)
[2022-12-22] MEDS: NAMENDA TAB 10 MG PO SCH ×2 (09:26→20:16)
[2022-12-22] MEDS: VITAMIN D3 125 mcg (5,000 UNITS) PO SCH (09:26)
[2022-12-22] MEDS: INVanz INJ 1 GRAM VIAL 1 G in NS 100 ML IV 100 ML IV SCH (09:26)
[2022-12-22] MEDS: CARDIZEM CD 240 MG 24-HR PO SCH (09:26)
[2022-12-22] MEDS: PEPCID 20 MG VIAL 20 MG in NS 50 ML IV 50 ML IV SCH (09:27)
[2022-12-22] MEDS: PROTONIX INJ 40 MG VIAL IVP SCH ×2 (09:27→20:17)
--- NOTE | 2022-12-22 16:29 | DR.PROGNOT ---
HOSPITAL PROGRESS NOTE Progress Note for Day of: Progress Note Date: 12/22/22 Chief Complaint Chief Complaint: no abdominal pain today, No rectal bleeding as per daughter.. Tolerating diet better, no nausea or vomiting CBC is normal as well as MCP . Past Medical Family Social History Allergies: Allergies codeine Allergy (Verified 09/15/22 14:04) Vital Signs Vital Signs: Vital Signs Temperature 97.5 F Pulse Rate [Left Brachial] 62 Respiratory Rate 18 Blood Pressure [Left Arm] 145/66 O2 Sat by Pulse Oximetry 95 Physical Exam GI: Tenderness: Other (Soft flat nontender abdomen, bowel sounds present.) Speech Pattern: Clear Laboratory and Diagnostics 12/22/22 05:43 12/22/22 05:43 Labs: 12/20/22 17:04 Blood Blood Culture - Preliminary 12/20/22 16:58 Blood Blood Culture - Preliminary 12/21/22 02:10 Stool Stool Culture - Preliminary 12/21/22 02:10 Stool - Final 12/21/22 02:10 Urine,Clean Catch Urine Culture - Preliminary Laboratory WBC 5.0 X10^3/uL (3.6-10.0) 12/22/22 05:43 RBC 3.92 X10^6/uL (3.5-5.4) 12/22/22 05:43 Hgb 12.6 g/dL (12.0-16.0) 12/22/22 05:43 Hct 37.4 % (36.0-47.0) 12/22/22 05:43 MCV 95.3 fL (80.0-100.0) 12/22/22 05:43 MCH 32.1 pg (27.0-34.0) 12/22/22 05:43 MCHC 33.7 g/dL (33.0-35.0) 12/22/22 05:43 RDW 13.8 % (11.6-16.5) 12/22/22 05:43 Plt Count 155 X10^3/uL (150.0-450.0) 12/22/22 05:43 MPV 8.1 fL (7.4-11.0) 12/22/22 05:43 Neut % (Auto) 57.1 % (42.0-75.0) 12/22/22 05:43 Lymph % (Auto) 30.3 % (21.0-51.0) 12/22/22 05:43 [place] % (Auto) 8.2 % (0.0-13.0) 12/22/22 05:43 Eos % (Auto) 3.6 % (0.9-2.9) H 12/22/22 05:43 Baso % (Auto) 0.8 % (0.2-1.0) 12/22/22 05:43 Neut # (Auto) 2.8 x10^3/uL (2.2-4.8) 12/22/22 05:43 Lymph # (Auto) 1.5 X10^3/uL (1.3-2.9) 12/22/22 05:43 [place] # (Auto) 0.4 x10^3/uL (0.3-0.8) 12/22/22 05:43 Eos # (Auto) 0.2 x10^3/uL (0.0-0.2) 12/22/22 05:43 Baso # (Auto) 0.0 X10^3/uL (0.0-0.1) 12/22/22 05:43 Absolute Nucleated RBC 0.1 /100WBC 12/22/22 05:43 Sodium 141 mmol/L (136-145) 12/22/22 05:43 Corrected Sodium TNP 12/22/22 05:43 Potassium 3.6 mmol/L (3.5-5.1) 12/22/22 05:43 Chloride 105 mmol/L (98-107) 12/22/22 05:43 Carbon Dioxide 31.8 mmol/L (21-32) 12/22/22 05:43 BUN 6 mg/dL (7-18) L 12/22/22 05:43 Creatinine 0.88 mg/dL (0.55-1.02) 12/22/22 05:43 Est GFR (MDRD) Af Amer > 60 (>60) 12/22/22 05:43 Est GFR (MDRD) Non-Af > 60 (>60) 12/22/22 05:43 Glucose 97 mg/dL (65-99) 12/22/22 05:43 Calcium 7.9 mg/dL (8.5-10.1) L 12/22/22 05:43 Corrected Calcium 8.7 mg/dL (8.5-10.1) 12/22/22 05:43 Magnesium 2.0 mg/dL (2.0-2.9) 12/21/22 05:32 Total Bilirubin 0.30 mg/dL (0.2-1.0) 12/22/22 05:43 AST 34 Units/L (15-37) 12/22/22 05:43 ALT 30 Units/L (12-78) 12/22/22 05:43 Alkaline Phosphatase 49 Units/L (46-116) 12/22/22 05:43 Total Protein 6.0 g/dL (6.4-8.2) L 12/22/22 05:43 Albumin 3.0 g/dL (3.4-5.0) L 12/22/22 05:43 Globulin 3.0 g/dL (2.5-4.5) 12/22/22 05:43 Albumin/Globulin Ratio 1.0 Ratio (1.1-2.1) L 12/22/22 05:43 Specimen Type Clean catch urine 12/21/22 02:10 Urine Color Yellow (YELLOW) 12/21/22 02:10 Urine Appearance Cloudy (CLEAR) 12/21/22 02:10 Urine pH 6.0 (5.0 - 8.0) 12/21/22 02:10 Ur Specific [place] 1.015 (1.000-1.030) 12/21/22 02:10 Urine Protein 2+ (NEGATIVE) 12/21/22 02:10 Urine Glucose (UA) Negative (NEGATIVE) 12/21/22 02:10 Urine Ketones Negative (NEGATIVE) 12/21/22 02:10 Urine Blood 3+ (NEGATIVE) 12/21/22 02:10 Urine Nitrite Negative (NEGATIVE) 12/21/22 02:10 Urine Bilirubin Negative (NEGATIVE) 12/21/22 02:10 Urine Urobilinogen Normal (NORMAL) 12/21/22 02:10 Ur Leukocyte Esterase 3+ (NEGATIVE) 12/21/22 02:10 Urine RBC 5-10 /HPF (0-3) A 12/21/22 02:10 Urine WBC Tntc /HPF (0-5) A 12/21/22 02:10 Ur Squamous Epith Cells Few /HPF (NEGATIVE) 12/21/22 02:10 Urine Bacteria 1+ /HPF (NEGATIVE) 12/21/22 02:10 Ur Culture Indicated? Yes/culture set up 12/21/22 02:10 Stl Occult Blood (IFOB) Positive (NEGATIVE) A 12/21/22 02:10 Stool for White Cells Positive (NEGATIVE) A 12/21/22 02:10 Stl C. diff Tox B Gene Negative (NEGATIVE) 12/21/22 02:10 Stl C. diff [id number] Presumptive negative (NEGATIVE) 12/21/22 02:10 Stool H. pylori Ag Negative (NEGATIVE) 12/21/22 02:10 Cryptosporid parvum Ag Negative (NEGATIVE) 12/21/22 02:10 Giardia lamblia Ag Negative (NEGATIVE) 12/21/22 02:10 Assessment and Plan 1: Rectal bleeding had subsided. Patient will be followed as an outpatient and arrange for future colonoscopy if it still symptomatic and having bleeding.. 2: Urinary tract infection on IV antibiotics..
[2022-12-22] MEDS: CELEXA PO SCH (20:14)
[2022-12-22] MEDS: ABILIFY PO SCH (20:15)
[2022-12-22] MEDS: CRESTOR TAB 10 MG PO SCH (20:15)
[2022-12-22] MEDS: NEURONTIN CAP 100 MG PO SCH (20:16)
[2022-12-23 00:36] VITALS: RESP 18
[2022-12-23] MEDS: NS + KCL 20 MEQ/L 1,000 ML IV SCH ×2 (02:30)
[2022-12-23 04:49] VITALS: TEMP 98
[2022-12-23 06:41] LABS: BASOPHILS % (AUTO) 0.5 % (0.2-1.0); EOSINOPHILS # (AUTO) 0.2 x10^3/uL (0.0-0.2); EOSINOPHILS % (AUTO) 3.6 % (0.9-2.9); HEMATOCRIT 37.7 % (36.0-47.0); HEMOGLOBIN 12.9 g/dL (12.0-16.0); LYMPHOCYTES # (AUTO) 1.4 X10^3/uL (1.3-2.9); LYMPHOCYTES % (AUTO) 27.5 % (21.0-51.0); MEAN CORPUSCULAR HEMOGLOBIN 32.7 pg (27.0-34.0); MEAN CORPUSCULAR HGB CONC 34.4 g/dL (33.0-35.0); MEAN PLATELET VOLUME 7.9 fL (7.4-11.0); MONOCYTES # (AUTO) 0.4 x10^3/uL (0.3-0.8); MONOCYTES % (AUTO) 7.2 % (0.0-13.0); NEUTROPHILS # (AUTO) 3.2 x10^3/uL (2.2-4.8); NEUTROPHILS % (AUTO) 61.2 % (42.0-75.0); PLATELET COUNT 165 X10^3/uL (150.0-450.0); RED BLOOD COUNT 3.96 X10^6/uL (3.5-5.4); RED CELL DISTRIBUTION WIDTH 13.4 % (11.6-16.5); WHITE BLOOD COUNT 5.2 X10^3/uL (3.6-10.0)
[2022-12-23 06:48] LABS: ALANINE AMINOTRANSFERASE 31 Units/L (12-78); ALBUMIN 2.8 g/dL (3.4-5.0); ALKALINE PHOSPHATASE 45 Units/L (46-116); ASPARTATE AMINO TRANSFERASE 39 Units/L (15-37); BLOOD UREA NITROGEN 6 mg/dL (7-18); CALCIUM 7.9 mg/dL (8.5-10.1); CARBON DIOXIDE 31.5 mmol/L (21-32); CHLORIDE 105 mmol/L (98-107); COR CA(FOR HYPOALB) 8.9 mg/dL (8.5-10.1); CREATININE 0.92 mg/dL (0.55-1.02); GLUCOSE 96 mg/dL (65-99); POTASSIUM 3.9 mmol/L (3.5-5.1); SODIUM 139 mmol/L (136-145); TOTAL PROTEIN 5.6 g/dL (6.4-8.2); eGFR NON BLACK RACES > 60 (>60)
[2022-12-23] MEDS: NS 1,000 ML IV 1,000 ML IV SCH (07:53)
[2022-12-23] MEDS: CARDIZEM CD 240 MG 24-HR PO SCH (10:22)
[2022-12-23] MEDS: VITAMIN D3 125 mcg (5,000 UNITS) PO SCH (10:23)
[2022-12-23] MEDS: FERROUS GLUCONATE PO SCH (10:23)
[2022-12-23] MEDS: ESTRACE PO SCH (10:23)
[2022-12-23] MEDS: HYDROCHLOROTHIAZIDE 12.5 MG CAP PO SCH (10:23)
[2022-12-23] MEDS: CATAPRES TAB 0.1 MG PO SCH (10:23)
[2022-12-23] MEDS: NAMENDA TAB 10 MG PO SCH (10:23)
[2022-12-23] MEDS: PEPCID 20 MG VIAL 20 MG in NS 50 ML IV 50 ML IV SCH (10:23)
[2022-12-23] MEDS: PROTONIX INJ 40 MG VIAL IVP SCH (10:24)
[2022-12-23] MEDS: INVanz INJ 1 GRAM VIAL 1 G in NS 100 ML IV 100 ML IV SCH (10:24)
[2022-12-23 12:47] VITALS: BP 133/60; PULSE 53; O2SAT 93
== END 2022-12-23 13:20 | disposition home health service (06) ==
LOC: MED/SURG
PROVIDERS: ADMIT Internal Medicine; ATTEND Internal Medicine
DX: J90 Pleural effusion, not elsewhere classified; K81.0 Acute cholecystitis; Z59.86 Financial insecurity; E78.2 Mixed hyperlipidemia; K92.1 Melena; N39.0 Urinary tract infection, site not specified; E83.42 Hypomagnesemia; Z73.89 Other problems related to life management difficulty; G25.81 Restless legs syndrome; R10.84 Generalized abdominal pain; E87.6 Hypokalemia; K21.9 Gastro-esophageal reflux disease without esophagitis